=== PATIENT | male | born 1960 | race Caucasian/White ===

== ENCOUNTER 2024-12-07 00:19 | Inpatient (IN) | payer OTHER, MEDICARE ==
[~2024-12-07] VITALS: Ht 177.8 cm; Wt 82.9 kg
[2024-12-07] MEDS: HYDROcodone-ACET 10/325MG TAB PO ONE (00:30)
[2024-12-07 00:52] LABS: Basophils # (auto) 0.1 10 ^3/uL (0-0.2); Basophils % (auto) 0.4 % (0.0-2.0); Eosinophils # (auto) 0.2 10 ^3/uL (0-0.8); Eosinophils % (auto) 1.2 % (0.0-7.0); Hematocrit 47.9 % (41.0-53.0); Hemoglobin 16.2 g/dL (13.5-17.5); Lymphocytes # (auto) 1.2 10 ^3/uL (0.4-5.4); Lymphocytes % (auto) 8.3 % (10.0-50.0); Mean Corpuscular Hemoglobin 30.7 pg (28.0-32.0); Mean Corpuscular Hgb Conc. 33.8 g/dL (32.0-36.0); Mean Corpuscular Volume 90.8 fL (80.0-100.0); Monocytes # (auto) 0.9 10 ^3/uL (0-1.3); Monocytes % (auto) 6.6 % (0.0-12.0); Neutrophils % (auto) 83.5 % (37.0-80.0); Nucleated Red Blood Cells % 0.1 %; Platelet Count (auto) 286 10^3/uL (140-450); Red Blood Cells 5.28 10^6/uL (4.5-5.90); Red Cell Distribution Width 13.6 % (11.8-14.3); White Blood Cell 14.4 10^3/uL (4.4-10.8)
[2024-12-07 00:55] VITALS: PULSE 112; RESP 33; O2SAT 91
[2024-12-07 01:19] LABS: Alanine Aminotransferase 31 U/L (7-40); Alkaline Phosphatase 63 U/L (46-116); Anion Gap 13 (5-15); Aspartate Aminotransferase 37 U/L (13-40); BUN/Creatinine Ratio 8.1 (10.0-20.0); Bilirubin, Total 0.4 mg/dL (0.2-1.0); Blood Alcohol 140.1 mg/dL (<10); Blood Urea Nitrogen 13 mg/dL (9-23); Carbon Dioxide 23 mmol/L (20-31); Chloride 103 mmol/L (98-107); Potassium 3.9 mmol/L (3.5-5.1); Sodium 139 mmol/L (136-145); Total Protein 8.1 g/dL (5.7-8.2)
[2024-12-07 01:20] LABS: Albumin 5.1 g/dL (3.2-4.8); Calcium 10.5 mg/dL (8.7-10.4); Glucose 117 mg/dL (74-106)
--- NOTE | 2024-12-07 02:03 | DVH ---
Procedure: CT CHEST WITHOUT CONTRAST Reason for study/Clinical History: TRAUMA/L SIDE ANTERIOR CHEST PAIN Comparison Study: None Exam Date: 12/07/2024 01:23 AM TECHNIQUE: Multidetector CT of the chest was performed from the lung apices to the upper abdomen with out the use of intravenous contract. Axial, coronal and sagittal multiplanar reformats were performed . Radiation Dose Information: CT Dose: CTDI volume is mGy. Dose-length product is mGy*cm The dose indicators for CT are the volume Computed Tomography (CT) Dose Index (CTDIvol) and the Dose Length Product (DLP), and are measured in units of mGy and mGy-cm, respectively. These indicators are not patient dose, but values generated from the CT scanner acquisition factors. The report includes radiation exposure data for exposures received during this examination. FINDINGS: Motion degraded study. Lower neck: Unremarkable. Pleura: Moderate-sized left-sided pneumothorax. Lungs: Atelectasis/consolidation/contusions in bilateral lower lobes. Heart/Vascular Structures: Normal heart size. No pericardial effusion. Unremarkable thoracic aorta. Mediastinum / Lymph Nodes: Small hiatal hernia. Otherwise unremarkable. No lymphadenopathy. Musculoskeletal: Multiple left-sided rib fractures. Soft tissues: Unremarkable. Visualized Upper abdomen: Fatty liver. IMPRESSION: Moderate-sized left-sided pneumothorax. Atelectasis/consolidation/contusions in bilateral lower lobes . Multiple left-sided rib fractures. Radiation optimization: All CT scans at this facility use at least one of these dose optimization jostin hniques: automated exposure control mA and/or kV adjustment per patient size (includes targeted exam s where dose is matched to clinical indication) or iterative reconstruction.
--- NOTE | 2024-12-07 02:28 | ED.PDOC ---
SOB-HPI HPI Comments This patient is a 64-year-old male who was brought in by EMS for evaluation of left-sided chest pain concerns status post ground level follow up. Patient has a history of alcoholism and states that he tripped and fell landing on his left- sided chest. Patient states the pain is significant in his having difficulty moving air. Patient denies any fever nausea or vomiting. Patient was hypertensive and tachypneic at arrival. Patient's oxygen saturation was 91% on room air. Chief Complaint: Shortness of Breath Time Seen by MD: 00:23 Reviewed notes: Nurses Notes Information Source: Patient Mode of Arrival: EMS Severity: Moderate Timing: Hours Duration: Since onset Context: With Light Exertion PE Risk Factors: Trauma History of: None Prehospital treatment: None Modifying Factors: Nothing Associated Signs and Symptoms: None Quality: Sharp, Stabbing Location: Chest (L) Past Medical History PAST MEDICAL HISTORY: Denies Surgical History: Denies all surgeries Family History Family History: Reviewed,noncontributory to illness, No family hx of Cancer, No family hx of DM, No family hx of Heart bert, No family hx of HTN, No family hx ofKidney bert, No family hx of Liver bert, No family hx of Lung bert, No family hx of Stroke Social History Smoker: Non-Smoker Alcohol: Heavy Drugs: Denies Drug Use Lives In: Home Constitutional: denies: chills, diaphoresis, fatigue, fever, malaise, sweats, weakness, others EENTM: denies: blurred vision, double vision, ear bleeding, ear discharge, ear drainage, ear pain, ear ringing, eye pain, eye redness, hearing loss, mouth pain, mouth swelling, nasal discharge, nose bleeding, nose congestion, nose pain, photophobia, tearing, throat pain, throat swelling, voice changes, others Respiratory: denies: cough, hemoptysis, orthopnea, SOB at rest, shortness of breath, SOB with excertion, stridor, wheezing, others Cardiovascular: reports: chest pain (Musculoskeletal); denies: dizzy spells, diaphoresis, Dyspnea on exertion, edema, irregular heart beat, left arm pain, lightheadedness, palpitations, PND, syncope, others Gastrointestinal: denies: abdomen distended, abdominal pain, blood streaked bowels, constipated, diarrhea, dysphagia, difficulty swallowing, hematemesis, melena, nausea, poor appetite, poor fluid intake, rectal bleeding, rectal pain, vomiting, others Genitourinary: denies: burning, dysuria, flank pain, frequency, hematuria, incontinence, penile discharge, penile sore, pain, testicle pain, testicle swelling, urgency, others Neurological: denies: dizziness, fainting, headache, left sided numbness, left sided weakness, numbness, paresthesia, pre-existing deficit, right sided numbness, right sided weakness, seizure, speech problems, tingling, tremors, weakness, others Musculoskeletal: denies: back pain, gout, joint pain, joint swelling, muscle p ain, muscle stiffness, neck pain, others Integumetry: denies: bruises, change in color, change in hair/nails, dryness, laceration, lesions, lumps, rash, wounds, others Allergic/Immunocompromised: denies: Difficulty Healing, Frequent Infections, Hives, Itching, others Hematologic/Lymphatic: denies: anemia, blood clots, easy bleeding, easy bruising, swollen glands, others Endocrine: denies: excessive hunger, excessive sweating, excessive thirst, excessive urination, flushing, intolerance to cold, intolerance to heat, unexplained weight gain, unexplained weight loss, others Psychiatric: denies: anxiety, bipolar disorder, depression, hopeless, panic disorder, schizophrenia, sleepless, suicidal, others Physical Exam General Appearance: Moderate Distress (Moderate distress due to left-sided chest pain concerns.), Normal HEENT: Normal ENT Inspection, Pharynx Normal, TMs Normal Neck: Full Range of Motion, Non-Tender, Normal, Normal Inspection Respiratory: Other (Diminished left-sided breath sounds throughout lateral aspect and superior aspect. Exquisitely tender to palpation throughout the mid axillary region and ribs three through nine.) Cardiovascular: No Edema, No JVD, No Murmur, No Gallop, Normal Peripheral Pulses, Regular Rate/Rhythm Breast Exam: Deferred Gastrointestinal: No Organomegaly, Non Tender, No Pulsatile Mass, Normal Bowel Sounds, Soft Genitalia: Deferred Pelvic: Deferred Rectal: Deferred Extremities: NOT DONE Neurologic: Alert, No Motor Deficits, No Sensory Deficits Cerebellar Function: NOT DONE Reflexes: NOT DONE Skin: Dry, Normal Color, Warm Lymphatic: No Adenopathy Was a procedure done? Was a procedure done?: No Differential Dx Differential Diagnosis: Bronchitis, Cardiogenic Shock, COPD, Pneumonia, Pneumothorax, Pulmonary Embolism, Other (Rib fracture) X-Ray, Labs, Meds, VS Vital Signs Date Time Temp Pulse Resp B/P (MAP) Pulse Ox O2 Delivery O2 Flow Rate FiO2 12/07/24 00:27 98.1 93 24 159/91 (113) 91 98.1 12/07/24 00:26 100 Lab Test 12/07/24 01:40 12/07/24 00:38 Range/Units Troponin I High Sensitivity Pending < 3 L </=54 ng/L White Blood Count 14.4 H 4.4-10.8 10^3/uL Red Blood Count 5.28 4.5-5.90 10^6/uL Hemoglobin 16.2 13.5-17.5 g/dL Hematocrit 47.9 41.0-53.0 % Mean Corpuscular Volume 90.8 80.0-100.0 fL Mean Corpuscular Hemoglobin 30.7 28.0-32.0 pg Mean Corpuscular Hemoglobin Concent 33.8 32.0-36.0 g/dL Red Cell Distribution Width 13.6 11.8-14.3 % Platelet Count 286 140-450 10^3/uL Mean Platelet Volume 6.9 6.9-10.8 fL Neutrophils (%) (Auto) 83.5 H 37.0-80.0 % Lymphocytes (%) (Auto) 8.3 L 10.0-50.0 % Monocytes (%) (Auto) 6.6 0.0-12.0 % Eosinophils (%) (Auto) 1.2 0.0-7.0 % Basophils (%) (Auto) 0.4 0.0-2.0 % Neutrophils # (Auto) 12.0 H 1.6-8.6 10 ^3/uL Lymphocytes # (Auto) 1.2 0.4-5.4 10 ^3/uL Monocytes # (Auto) 0.9 0-1.3 10 ^3/uL Eosinophils # (Auto) 0.2 0-0.8 10 ^3/uL Basophils # (Auto) 0.1 0-0.2 10 ^3/uL Nucleated Red Blood Cells 0.1 % Sodium Level 139 136-145 mmol/L Potassium Level 3.9 3.5-5.1 mmol/L Chloride Level 103 98-107 mmol/L Carbon Dioxide Level 23 20-31 mmol/L Anion Gap 13 5-15 Blood Urea Nitrogen 13 9-23 mg/dL Creatinine 1.60 H 0.700-1.30 mg/dL Glomerular Filtration Rate Calc 47 >90 mL/min BUN/Creatinine Ratio 8.1 L 10.0-20.0 Serum Glucose 117 H 74-106 mg/dL Calcium Level 10.5 H 8.7-10.4 mg/dL Total Bilirubin 0.4 0.2-1.0 mg/dL Aspartate Amino Transferase (AST) 37 13-40 U/L Alanine Aminotransferase (ALT) 31 7-40 U/L Alkaline Phosphatase 63 46-116 U/L B-Type Natriuretic Peptide 5.88 0-100 pg/mL Total Protein 8.1 5.7-8.2 g/dL Albumin 5.1 H 3.2-4.8 g/dL Plasma/Serum Blood Alcohol 140.1 H <10 mg/dL Current Medications Medications (Trade) Dose Ordered Sig/Rbice Route Start Time Stop Time Status Last Admin Acetaminophen/ Hydrocodone Bitart ([place] 10/325MG Tab) 1 tab ONCE ONCE PO 12/07/24 00:30 12/07/24 00:31 DC 12/07/24 00:30 X-Ray, Labs, Meds, VS Comment All studies performed the ED were evaluated by me personally. Serum laboratories revealed a mild leukocytosis as well as an ETOH of 0.14. Troponins were negative. EKG revealed a sinus tachycardia with a rate of 100. Borderline prolonged RI interval as well as abnormal R-wave progression and possible her injury. RI interval of 208 and QT interval of 350. CT chest revealed a moderate-sized left-sided pneumothorax. Atelectasis consolidation and contusions and bilateral lower lobes as well as multiple left-sided rib fractures. Patient will be admitted for his pneumothorax and observed in the ED. hospitalist and residents can review and assess whether they want to tube with the patient. Patient has been put on oxygen for support. I discussed the patient's presentation and CT findings with Dr. Harris. He agreed with my decision to admit and allow hospitalist and residents to assess chest tube necessity. Time of 1ST Reevaluation: 02:27 Reevaluation 1ST: Improved Consultation: PCP Patient Education/Counseling: Diagnosis, Treatment Family Education/Counseling: Diagnosis, Treatment Departure 1 Departure Time of Disposition: 02:27 Impression: Primary Impression: Pneumothorax Additional Impressions: Rib fractures Leukocytosis Alcohol intoxication Disposition: 09 ADMITTED INPATIENT Condition: Fair Discharged With: Self Critical Care Note Critical Care Time?: No Stability Stability form required: No Heart Score Heart Score: Heart Score Response (Comments) Value History Slightly Suspicious 0 EKG Repolarization Disturb 1 Age >65 2 Risk Factors 1 or 2 risk factors 1 Troponin Normal limit 0 Total 4 TRAMAINE JAIMES PAC December 07, 2024 02:28
[2024-12-07] MEDS: HYDROmorphone HCL 2 MG/ML VL/or syr IV ONE ×3 (02:30→09:16)
[2024-12-07] MEDS: SODIUM CHLORIDE 0.9% 1,000 ML IV ONE (02:30)
[2024-12-07] MEDS: ONDANSETRON HCL 4 MG/2 ML VIAL IV ONE (05:45)
--- NOTE | 2024-12-07 06:43 | ECG ---
[facility] Test Date: 2024-12-07 Test Time: 00:26:03 Pat Name: MILENA JIMENES Department: ED Room: [address] [place] [address] Gender: M Surface [employer]: : 1960 Requested By: TRAMAINE JAIMES Order Number: [id number] Reading MD: Carlo Castro Measurements Intervals [place] Rate: 100 P: 54 NV: 208 QRS: 5 QRSD: 95 T: 62 QT: 350 QTc: 452 Interpretive Statements Sinus tachycardia Borderline prolonged NV interval Abnormal R-wave progression, early transition ST elevation, consider inferior injury Electronically Signed On 12-08-2024 12:13:16 PDT by Carlo Castro Please click the below link to view image of tracing.
[2024-12-07 07:51] VITALS: PULSE 107; RESP 40; O2SAT 91
[2024-12-07] MEDS ORDERED: ACETAMINOPHEN 325 MG TAB PO PRN (10:45)
--- NOTE | 2024-12-07 10:52 | DVHHP2 ---
History of Present Illness Reason for Visit: Shortness of breath History of Present Illness A 64-year-old male presents to the ED via EMS with left-sided chest pain and sob after a mechanical fall. The patient reports that while kicking a soccer ball with his knees, he accidentally fell and landed on left side, resulting in the onset of shortness of breath and chest pain. In the emergency department, a CT scan of chest revealed moderate left-sided pneumothorax, multiple left-sided rib fracture, atelectasis/consolidation/contusion in the bilateral lower lobes. Blo od work reveals alcohol intoxication, acute kidney injury, hypertension,and leukocytosis. Upon assessment, the patient is currently on 15 L non-rebreather mask and desaturates immediately upon removal of the mask. Past medical history of hypertension and hypothyroidism patient is unable to recall medication names or dosages Past Medical History As stated in HPI Past Surgical History Denies Family History Reviewed, non-contributory to the management of this case. Past Social History Ex-smoker Alcohol use Denies illicit drug use Review of Systems Constitutional: Yes: Malaise; No: Fever, Chills, Sweats, Weakness, Other Eyes: No: Pain, Vision change, Conjunctivae inflammation, Eyelid inflammation, Other, Redness ENT: No: Ear pain, Ear discharge, Nose pain, Nose discharge, Nose congestion, Mouth pain, Mouth swelling, Throat pain, Throat swelling, Other Respiratory: Shortness of breath; No: Cough, Dry, SOB with excertion, Wheezing, Hemoptysis, Pleuritic Pain, Sputum, Wheezing, Other Cardiovascular: Chest Pain; No: Palpitations, Orthopnea, Paroxysmal Noc. Dyspnea, Edema, Lt Headedness, Other Gastrointestinal: No: Nausea, Vomiting, Abdominal Pain, Diarrhea, Constipation, Melena, Hematochezia, Other Genitourinary: No Dysuria, No Frequency, No Incontinence, No Hematuria, No Retention, No Other Skin: No: Rash, Lesions, Jaundice, Bruising, Other Neurological: No: Weakness, Numbness, Incoordination, Change in speech, Confusion, Seizures, Other Allergies: Coded Allergies: NO KNOWN ALLERGIES (Unverified , 12/07/24) Medications Current Medications Medications Dose Ordered Sig/Brice Route Start Time Stop Time Status Last Admin Dose Admin Acetaminophen/ Hydrocodone Bitart 1 tab Q4HP PRN PO 12/07/24 10:45 Ondansetron HCl 4 mg Q4HP PRN IV 12/07/24 10:45 Enoxaparin Sodium 40 mg DAILY SC 12/08/24 10:00 UNV Acetaminophen 650 mg Q6HP PRN PO 12/07/24 10:45 Morphine Sulfate 2 mg Q4HPRN PRN IV 12/07/24 10:45 Folic Acid 1 mg/ Multivitamins 10 ml/Magnesium Sulfate 8 meq/ Thiamine HCl 100 mg/Dextrose 1,013.2 ml @ 125.001 mls/hr DAILY@1800 INJ 12/07/24 18:00 Exam Vital Signs Vital Signs Date Time Temp Pulse Resp B/P (MAP) Pulse Ox O2 Delivery O2 Flow Rate FiO2 12/07/24 10:15 106 36 169/85 12/07/24 07:51 91 Non-Rebreather 15 N/A 12/07/24 07:50 97.7 97.7 General Appearance: Alert, Oriented X3, moderate distress HEENT: Atraumatic, PERRLA, EOMI Respiratory: Other (Diminished lung sounds. 15 L non-rebreather mask) Cardiovascular: Regular rate, Normal S1, Normal S2 Abdominal: Normal bowel sounds, Soft, No tenderness Extremities: No clubbing, No cyanosis, No edema Skin: No rashes, No breakdown Neuro: Normal speech Psych/Mental Status: Mental status NL Labs/Xrays Labs Test 12/07/24 03:30 12/07/24 00:38 Range/Units Troponin I High Sensitivity < 3 L </=54 ng/L White Blood Count 14.4 H 4.4-10.8 10^3/uL Red Blood Count 5.28 4.5-5.90 10^6/uL Hemoglobin 16.2 13.5-17.5 g/dL Hematocrit 47.9 41.0-53.0 % Mean Corpuscular Volume 90.8 80.0-100.0 fL Mean Corpuscular Hemoglobin 30.7 28.0-32.0 pg Mean Corpuscular Hemoglobin Concent 33.8 32.0-36.0 g/dL Red Cell Distribution Width 13.6 11.8-14.3 % Platelet Count 286 140-450 10^3/uL Mean Platelet Volume 6.9 6.9-10.8 fL Neutrophils (%) (Auto) 83.5 H 37.0-80.0 % Lymphocytes (%) (Auto) 8.3 L 10.0-50.0 % Monocytes (%) (Auto) 6.6 0.0-12.0 % Eosinophils (%) (Auto) 1.2 0.0-7.0 % Basophils (%) (Auto) 0.4 0.0-2.0 % Neutrophils # (Auto) 12.0 H 1.6-8.6 10 ^3/uL Lymphocytes # (Auto) 1.2 0.4-5.4 10 ^3/uL Monocytes # (Auto) 0.9 0-1.3 10 ^3/uL Eosinophils # (Auto) 0.2 0-0.8 10 ^3/uL Basophils # (Auto) 0.1 0-0.2 10 ^3/uL Nucleated Red Blood Cells 0.1 % Sodium Level 139 136-145 mmol/L Potassium Level 3.9 3.5-5.1 mmol/L Chloride Level 103 98-107 mmol/L Carbon Dioxide Level 23 20-31 mmol/L Anion Gap 13 5-15 Blood Urea Nitrogen 13 9-23 mg/dL Creatinine 1.60 H 0.700-1.30 mg/dL Glomerular Filtration Rate Calc 47 >90 mL/min BUN/Creatinine Ratio 8.1 L 10.0-20.0 Serum Glucose 117 H 74-106 mg/dL Hemoglobin A1c 5.6 <5.7 % A1C Calcium Level 10.5 H 8.7-10.4 mg/dL Total Bilirubin 0.4 0.2-1.0 mg/dL Aspartate Amino Transferase (AST) 37 13-40 U/L Alanine Aminotransferase (ALT) 31 7-40 U/L Alkaline Phosphatase 63 46-116 U/L B-Type Natriuretic Peptide 5.88 0-100 pg/mL Total Protein 8.1 5.7-8.2 g/dL Albumin 5.1 H 3.2-4.8 g/dL Plasma/Serum Blood Alcohol 140.1 H <10 mg/dL PROCEDURE(s): CX2CT - CHEST WITHOUT CONTRAST REASON: TRAUMA/L SIDE ANTERIOR CHEST PAIN ORDER NUMBER(s): [id number], ACCESSION NUMBER(s): [id number] Procedure: CT CHEST WITHOUT CONTRAST Reason for study/Clinical History: TRAUMA/L SIDE ANTERIOR CHEST PAIN Comparison Study: None Exam Date: 12/07/2024 01:23 AM TECHNIQUE: Multidetector CT of the chest was performed from the lung apices to the upper abdomen without the use of intravenous contract. Axial, coronal and sagittal multiplanar reformats were performed. Radiation Dose Information: CT Dose: CTDI volume is mGy. Dose-length product is mGy*cm The dose indicators for CT are the volume Computed Tomography (CT) Dose Index (CTDIvol) and the Dose Length Product (DLP), and are measured in units of mGy and mGy-cm, respectively. These indicators are not patient dose, but values generated from the CT scanner acquisition factors. The report includes radiation exposure data for exposures received during this examination. FINDINGS: Motion degraded study. Lower neck: Unremarkable. Pleura: Moderate-sized left-sided pneumothorax. Lungs: Atelectasis/consolidation/contusions in bilateral lower lobes. Heart/Vascular Structures: Normal heart size. No pericardial effusion. Unremarkable thoracic aorta. Mediastinum / Lymph Nodes: Small hiatal hernia. Otherwise unremarkable. No lymphadenopathy. Musculoskeletal: Multiple left-sided rib fractures. Soft tissues: Unremarkable. Visualized Upper abdomen: Fatty liver. IMPRESSION: Moderate-sized left-sided pneumothorax. Atelectasis/consolidation/contusions in bilateral lower lobes. Multiple left-sided rib fractures. Assessment/Plan Assessment/Plan # left-sided pneumothorax, moderate # acute respiratory failure with hypoxemia likely due to above # s/p mechanical fall resulting in # multiple left-sided rib fractures Admit to telemetry Repeat chest x-ray to evaluate for chest tube placement given patient is on 15 L of non-rebreather with respiratory distress and hypoxemia upon removal of non- rebreather mask Continue with O2 supplement Close respiratory surveillance # leukocytosis, suspected pneumonia Empiric antibiotics Blood and sputum culture # hypertension Amlodipine Hydralazine Monitor # alcohol intoxication Banana bag Monitor CIWA per protocol Check UDS # LUIS on CKD 3A IV fluid Monitor kidney function DVT prophylaxis Medical plan discussed with patient and RN Plan discussed with: Patient, Other (RN) My Orders Orders - KELLEN DUQUE [employer] Procedure Category Date Status Time Chest Portable XY 12/07/24 Logged 10:14 Urinalysis LAB 12/07/24 Logged 10:14 Drug Screen LAB 12/07/24 Logged 10:14 Admit ADMIT 12/07/24 Transmitted 10:41 Code Status CODE 12/07/24 Transmitted 10:41 Hydrocodone-Acet PHA 12/07/24 In Process 5/325mg Tab ([place] 10:45 Ondansetron Hcl PHA 12/07/24 In Process (Zofran) 10:45 Enoxaparin Sodium PHA 12/08/24 Logged (Lovenox) 10:00 Fall Risk Precautions MERYL 12/07/[address] 10:41 Complete Blood Count LAB 12/08/24 Verified 04:00 Comprehensive LAB 12/08/24 Verified Metabolic Panel 04:00 Cardiac DIET 12/07/24 Transmitted Diet-2gna,Lofat,Lochol Lunch Condition: Fair MERYL 12/07/24 In Process 10:41 Acetaminophen Tablet PHA 12/07/24 In Process (Tylenol Tablet) 10:45 Morphine Sulfate PHA 12/07/24 In Process Injection 10:45 Folic Acid... PHA 12/07/24 In Process 18:00 Date of Service: December 07, 2024 Billing Provider: KELLEN DUQUE Common Visit Codes: [id number] INP/OBS CARE (HIGH) KELLEN DUQUE December 07, 2024 10:52
[2024-12-07] MEDS: ENOXAPARIN SOD 40 MG/0.4 ML SYRINGE SC SCH (11:04)
[2024-12-07] MEDS: amLODIPine BESYLATE 5 MG TAB PO ONE (11:24)
[2024-12-07] MEDS: cefTRIAXone 1GM/50ML D5W 50 ML IV ONE (11:24)
--- NOTE | 2024-12-07 11:24 | DVH ---
XY CHEST PORTABLE, HISTORY: sob COMPARISON: None None TECHNICAL DATA: 1 view of the chest was obtained. FINDINGS: Lines and tubes: None Cardiomediastinal silhouette: normal Pulmonary vasculature: normal Lung expansion: normal Lung airspace: Patchy opacities. Lung interstitium: normal Pleura: normal Pneumothorax: yes Bones: Unremarkable Other: no IMPRESSION: There is a small to moderate left-sided pneumothorax. This appears similar to the prior CT.
[2024-12-07] MEDS: hydrALAZINE HCL 20 MG/ML VL IV PRN (11:38)
[2024-12-07] MEDS: ONDANSETRON HCL 4 MG/2 ML VIAL IV PRN (12:03)
[2024-12-07] MEDS: MORPHINE SULFATE INJ 2 MG/ml SYRG IV PRN (12:03)
[2024-12-07] MEDS: AZITHROMYCIN 500MG/ 250ML 250 ML IV ONE (12:03)
[2024-12-07 12:18] LABS: Urine Bacteria None Seen /hpf (None Seen)
[2024-12-07 12:36] LABS: Urine Blood Negative /uL (Negative); Urine Clarity Clear (Clear); Urine Color Light-Yellow (Yellow); Urine Protein, UAD TRACE (Negative); Urine Specific Gravity 1.024 (1.001-1.035); Urine Squamous Epithelial Cell None Seen /hpf (<5); Urine Urobilinogen Normal (Negative); Urine WBC < 1 /HPF (0-3)
[2024-12-07 12:40] LABS: Opiate Scree,Urine Pos (NEGATIVE)
[2024-12-07 12:41] LABS: Cannabinoid Screen, Urine Neg (NEGATIVE)
[2024-12-07 12:47] LABS: Amphetamine Screen, Urine Neg (NEGATIVE); Barbiturate Scree,Urine Neg (NEGATIVE); Benzodiazephine Screen, Urine Neg (NEGATIVE); Cocaine Screen, Urine Neg (NEGATIVE); Phencyclidine Screen, Urine Neg (NEGATIVE)
[2024-12-07] MEDS: HYDROcodone-ACET 5/325MG TAB PO PRN (15:25)
--- NOTE | 2024-12-07 15:44 | DVH ---
CHEST RADIOGRAPH Indication: follow-up on pneumothorax Technique: Single frontal view of the chest was obtained Comparison: XY CHEST PORTABLE on DOS: 12/07/24 CT chest without contrast 12/07/2024 FINDINGS: Lines and Tubes: None Lungs: No focal consolidation. Redemonstration of small to moderate left-sided pneumothorax right cos tophrenic angle linear atelectasis. Pleura: No effusion. Cardiomediastinal contours: Unremarkable Bones: The left-sided acute rib fractures are better evaluated on CT. IMPRESSION: Redemonstration of Small to moderate left-sided pneumothorax ; unchanged to slightly worsened from pr ior imaging. No Chest tube is visualized.
[2024-12-07] MEDS: FOLIC ACID 1 MG, MULTIPLE VITAMIN 10 ML, MAGNESIUM SULF SDV 50% 8 MEQ, THIAMINE INJ 100... INJ SCH (18:03)
[2024-12-07 19:30] VITALS: PULSE 108; RESP 20; O2SAT 93
[2024-12-08] VITALS (16 sets, daily range): BP systolic 128–223; BP diastolic 74–127; PULSE 95–137; RESP 9–54; TEMP 97.7–98.4; O2SAT 83–100
[2024-12-08] MEDS: MORPHINE SULFATE 4 MG/ML SYR/VIAL IV ONE (03:52)
[2024-12-08] MEDS: ONDANSETRON HCL 4 MG/2 ML VIAL IV ONE ×2 (03:52→10:06)
[2024-12-08 05:19] LABS: Basophils # (auto) 0 10 ^3/uL (0-0.2); Basophils % (auto) 0.3 % (0.0-2.0); Eosinophils # (auto) 0.1 10 ^3/uL (0-0.8); Eosinophils % (auto) 0.4 % (0.0-7.0); Hematocrit 44.3 % (41.0-53.0); Lymphocytes # (auto) 0.8 10 ^3/uL (0.4-5.4); Lymphocytes % (auto) 5.8 % (10.0-50.0); Mean Corpuscular Hemoglobin 30.7 pg (28.0-32.0); Mean Corpuscular Hgb Conc. 33.7 g/dL (32.0-36.0); Monocytes # (auto) 1.3 10 ^3/uL (0-1.3); Monocytes % (auto) 9.1 % (0.0-12.0); Neutrophils # (auto) 12.1 10 ^3/uL (1.6-8.6); Neutrophils % (auto) 84.4 % (37.0-80.0); Nucleated Red Blood Cells % 0.1 %; Platelet Count (auto) 278 10^3/uL (140-450); Red Blood Cells 4.87 10^6/uL (4.5-5.90); Red Cell Distribution Width 13.6 % (11.8-14.3); White Blood Cell 14.4 10^3/uL (4.4-10.8)
[2024-12-08 05:34] LABS: Alanine Aminotransferase 25 U/L (7-40); Albumin 4.6 g/dL (3.2-4.8); Alkaline Phosphatase 62 U/L (46-116); Anion Gap 8 (5-15); Aspartate Aminotransferase 37 U/L (13-40); BUN/Creatinine Ratio 11.3 (10.0-20.0); Calcium 9.3 mg/dL (8.7-10.4); Carbon Dioxide 27 mmol/L (20-31); Chloride 101 mmol/L (98-107); Potassium 3.8 mmol/L (3.5-5.1); Sodium 136 mmol/L (136-145); Total Protein 7.4 g/dL (5.7-8.2)
[2024-12-08 05:37] LABS: Blood Urea Nitrogen 9 mg/dL (9-23); Glucose 152 mg/dL (74-106)
[2024-12-08 05:48] LABS: Bilirubin, Total 0.8 mg/dL (0.2-1.0)
--- NOTE | 2024-12-08 05:48 | DVH ---
EXAM: XY CHEST XRAY 1 VIEW Indication: CHEST TUBE PLACEMENT Technique: Single frontal view of the chest was obtained Comparison: XY CHEST PORTABLE on DOS: 12/07/24, XY CHEST PORTABLE on DOS: 12/07/24 FINDINGS: Lines and Tubes: Left pigtail catheter is visualized in the left soft tissues and not within the ches t. Lungs: Small left pneumothorax and left basilar opacity. Cardiomediastinal contours: Unremarkable Bones: No acute osseous abnormality. IMPRESSION: Left pigtail catheter is malpositioned and visualized in the soft tissues of the chest wall. Small le ft pneumothorax is visualized.
[2024-12-08] MEDS: HYDROmorphone HCL 2 MG/ML VL/or syr IV ONE (07:45)
--- NOTE | 2024-12-08 08:19 | DVH ---
CHEST RADIOGRAPH Indication: Chest tube placement Technique: Single frontal view of the chest was obtained Comparison: XY CHEST XRAY 1 VIEW on DOS: 12/08/24 FINDINGS: Lines and Tubes: Left apically oriented chest tube. Lungs: Patchy left lung consolidation. Pleura: No effusion. No pneumothorax. Cardiomediastinal contours: Cardiomegaly. Bones: No acute osseous abnormality. Subcutaneous emphysema in the left chest wall. IMPRESSION: 1. Patchy left lung consolidation. 2. Left apically oriented chest tube. No discernible pneumothorax.
[2024-12-08] MEDS: cefTRIAXone 1GM/50ML D5W 50 ML IV SCH (08:58)
[2024-12-08 10:04] LABS: Base Excess 0.2 mmol/L (-2.0-3.0)
[2024-12-08] MEDS: MORPHINE SULFATE INJ 2 MG/ml SYRG IV ONE (10:05)
[2024-12-08] MEDS: amLODIPine BESYLATE 5 MG TAB PO SCH (10:05)
[2024-12-08] MEDS: AZITHROMYCIN 500MG/ 250ML 250 ML IV SCH (10:16)
[2024-12-08] MEDS: LORazepam 2MG/ML-1ML VIAL IV ONE ×3 (10:53→15:57)
[2024-12-08] MEDS: MAGNESIUM OXIDE 400 MG TAB PO ONE (11:41)
[2024-12-08] MEDS: THIAMINE HCL 100 MG TAB PO ONE (11:41)
[2024-12-08] MEDS: MULTIPLE VITAMIN TAB PO ONE (11:41)
[2024-12-08] MEDS: FOLIC ACID 1 MG TAB PO ONE (11:41)
[2024-12-08] MEDS: LORazepam 2MG/ML-1ML VIAL IV PRN (12:44)
[2024-12-08 13:53] LABS: Base Excess 1.4 mmol/L (-2.0-3.0)
[2024-12-08] MEDS: LORazepam 2MG/ML-1ML VIAL ONE ×2 (15:52→15:53)
--- NOTE | 2024-12-08 20:39 | DVHPN2 ---
Subjective In bed resting, does not keep he's oxygen on Changes from previous H/P or p: No Changes Eyes: No Pain, No Vision change, No Conjunctivae inflammation, No Eyelid inflammation, No Other, No Redness ENT: No Ear pain, No Ear discharge, No Nose pain, No Nose discharge, No Nose congestion, No Mouth pain, No Mouth swelling, No Throat pain, No Throat swelling, No Other Cardiovascular: Chest Pain; No Palpitations, No Orthopnea, No Paroxysmal Noc. Dyspnea, No Edema, No Lt Headedness, No Other Respiratory: No Cough, No Dry; Shortness of breath; No SOB with excertion, No Wheezing, No Hemoptysis, No Pleuritic Pain, No Sputum, No Other Gastrointestinal: No Nausea, No Vomiting, No Abdominal Pain, No Diarrhea, No Constipation, No Melena, No Hematochezia, No Other Genitourinary: No Dysuria, No Frequency, No Incontinence, No Hematuria, No Retention, No Other Skin: No Rash, No Lesions, No Jaundice, No Bruising, No Other Objective Vitals Vital Signs Date Time Temp Pulse Resp B/P (MAP) Pulse Ox O2 Delivery O2 Flow Rate FiO2 12/08/24 20:06 152/92 12/08/24 18:30 98 19 99 12/08/24 17:00 97.7 97.7 12/08/24 13:59 50.0 100 12/08/24 09:35 Non-Rebreather Intake/Output Intake and Output 12/08/24 07:00 Intake Total 1175 ml Balance 1175 ml Intake IV Total 1175 ml General Appearance: mild distress Lungs: Clear to auscultation Cardiovascular: Regular rate, Normal S1, Normal S2 Abdomen: Normal bowel sounds Medications Current Medications Medications Dose Ordered Sig/Brice Route Start Time Stop Time Status Last Admin Dose Admin Acetaminophen/ Hydrocodone Bitart 1 tab Q4HP PRN PO 12/07/24 10:45 12/08/24 00:17 1 TAB Ondansetron HCl 4 mg Q4HP PRN IV 12/07/24 10:45 12/07/24 16:07 4 MG Enoxaparin Sodium 40 mg DAILY SC 12/07/24 10:52 12/08/24 10:04 40 MG Acetaminophen 650 mg Q6HP PRN PO 12/07/24 10:45 Morphine Sulfate 2 mg Q4HPRN PRN IV 12/07/24 10:45 12/08/24 15:55 2 MG Ceftriaxone Sodium 50 ml @ 100 mls/hr DAILY@09 IV 12/08/24 09:00 12/08/24 08:58 100 MLS/HR Azithromycin 250 ml @ 125 mls/hr DAILY IV 12/08/24 10:00 12/08/24 10:16 125 MLS/HR Hydralazine HCl 10 mg Q6HP PRN IV 12/07/24 11:15 12/08/24 20:06 10 MG Amlodipine Besylate 10 mg DAILY PO 12/08/24 10:00 12/08/24 10:05 10 MG Folic Acid 1 mg DAILY PO 12/09/24 10:00 Multivitamins 1 tab DAILY PO 12/09/24 10:00 Magnesium Oxide 400 mg DAILY PO 12/09/24 10:00 Thiamine HCl 100 mg DAILY PO 12/09/24 10:00 Lorazepam 1 mg Q4HPRN PRN IV 12/08/24 12:15 12/08/24 20:05 1 MG Laboratory Results Laboratory Tests 12/08/24 04:50 Chemistry Test 12/08/24 04:50 Albumin 4.6 g/dL (3.2-4.8) Calcium Level 9.3 mg/dL (8.7-10.4) Total Protein 7.4 g/dL (5.7-8.2) LFT Test 12/08/24 04:50 Alanine Aminotransferase (ALT) 25 U/L (7-40) Alkaline Phosphatase 62 U/L (46-116) Aspartate Amino Transferase (AST) 37 U/L (13-40) Total Bilirubin 0.8 mg/dL (0.2-1.0) Urinalysis Test 12/07/24 12:13 Urine Color Light-yellow (Yellow) Urine Clarity Clear (Clear) Urine pH 5.0 (5.0-9.0) Urine Specific [place] 1.024 (1.001-1.035) Urine Protein Trace (Negative) H Urine Ketones 2+ (Negative) H Urine Blood Negative /uL (Negative) Urine Nitrite Negative (Negative) Urine Bilirubin Negative (Negative) Urine Urobilinogen Normal mg/dL (Negative) Urine Leukocyte Esterase Negative /uL (Negative) Urine RBC 1 /hpf (0 - 3) Urine Microscopic WBC < 1 /HPF (0-3) Urine Squamous Epithelial Cells None seen /hpf (<5) Urine Bacteria None seen /hpf (None Seen) Urine Glucose 2+ mg/dL (Normal) H Blood Gas Results Test 12/08/24 09:58 12/08/24 13:46 Arterial Blood pH 7.301 (7.350-7.450) 7.360 (7.350-7.450) FiO2 % 100.0 100.0 Microbiology Microbiology Date/Time Source Procedure Growth Status 12/07/24 11:30 Blood Blood Culture - Preliminary NO GROWTH AFTER 24 HOURS OF INCUBATION. Resulted Assessment/Plan Assessment/Plan # left-sided pneumothorax, moderate # acute respiratory failure with hypoxemia likely due to above # s/p mechanical fall resulting in # multiple left-sided rib fractures Admit to telemetry s/p chest tube consult pulmonary continue oxygen repeat CXR if symtoms worsen # leukocytosis, suspected pneumonia Empiric antibiotics Blood and sputum culture # hypertension Amlodipine Hydralazine Monitor # alcohol intoxication Banana bag Monitor CIWA per protocol Check UDS # LUIS on CKD 3A IV fluid Monitor kidney function Plan discussed with: Patient My Orders Orders - IKARA SHERMAN MD Procedure Category Date Status Time Transfer Orders XFER 12/08/24 Transmitted 12:03 Lorazepam 2mg/Ml Inj PHA 12/08/24 In Process (Ativan Inj) 12:15 *Consult CONS 12/08/24 Transmitted / 13:17 Date of Service: December 08, 2024 Billing Provider: KIARA SHERMAN MD Common Visit Codes: [id number] INP/OBS CARE(HIGH) KIARA SHERMAN MD December 08, 2024 20:39
[2024-12-08] MEDS: ETOMIDATE (2MG/ML) 20ML VIAL IV ONE ×2 (22:47→23:48)
[2024-12-08] MEDS: ROCURONIUM 10MG/ML 10ML VIAL IV ONE (22:47)
[2024-12-08] MEDS: PROPOFOL 100 ML IV ONE (22:51)
[2024-12-08] MEDS: fentaNYL Drip 2500mCg/250mlNS 250 ML IV ONE (22:52)
[2024-12-09] VITALS (102 sets, daily range): BP systolic 60–139; BP diastolic 49–77; PULSE 64–107; RESP 13–21; TEMP 97.5–99.7; O2SAT 93–100
[2024-12-09] MEDS: fentaNYL Drip 2500mCg/250mlNS 250 ML IV SCH (00:17)
[2024-12-09] MEDS: ROCURONIUM 10MG/ML 10ML VIAL IV ONE (00:18)
[2024-12-09] MEDS: PROPOFOL 100 ML IV SCH (00:22)
[2024-12-09 00:40] LABS: Base Excess 1.9 mmol/L (-2.0-3.0)
--- NOTE | 2024-12-09 01:31 | DVH ---
CHEST RADIOGRAPH Indication: ETT Technique: Single frontal view of the chest was obtained COMPARISON: XY CHEST XRAY 1 VIEW on DOS: 12/08/24 FINDINGS / IMPRESSION: Lines and Tubes: Interval insertion of ETT in satisfactory position with its tip approximately 3.6 c m above the allen. Left-sided chest tube remains in place. Lungs: Infiltrates again noted throughout the left lung and at the right lung base, not significantly change compared to the prior chest x-ray from a day earlier. Pleura: No significant pleural effusion. No significant pneumothorax evident. Cardiomediastinal contours: Unremarkable. Bones: Left-sided rib fractures.
--- NOTE | 2024-12-09 01:33 | ED.PDOC ---
Was a procedure done? Was a procedure done?: Yes Sedation Sedation?: No Central Line Recorder of insertion practice: Calender Runner Occupation of core inserter: Attending Physician Indication: Hypotension, Volume resuscitation Room prepared for procedure: Yes Calender Runner performed hand hygien: Yes Maximal sterile barrier precau: Mask/Eye shield, Sterlie gloves, Large sterlie drape Skin Preparation: Chlorhexidine gluconate Skin preparation completely dr: Yes Insertion site: Right, Femoral Central line catheter type: [id number] dialysis Number of lumens: 3 Central line exchanged over a: Yes Antiseptic ointment applied to: Yes Post Assessment: Proper placement Informed consent obtained: No Risks/benefits/alt described: No Intubation Indication: Respiratory Insufficiency, Altered Mental Status, Airway Protection Prep: Preoxygenation Pretreated with: Other (Etomidate) Medicated with: Other (Rocuronium) Intubation Approach: Orotracheal Intubation size: cm (8) Informed consent obtained: No Risks/benefits/alt described: No Notes Patient was desatting, with increasing work of breathing, and patient is only on protecting his airway. Patient was emergently intubated ADELSO LARRY MD December 09, 2024 01:33
[2024-12-09 06:55] LABS: Basophils # (auto) 0 10 ^3/uL (0-0.2); Basophils % (auto) 0.1 % (0.0-2.0); Eosinophils # (auto) 0.1 10 ^3/uL (0-0.8); Eosinophils % (auto) 0.9 % (0.0-7.0); Hematocrit 38.4 % (41.0-53.0); Hemoglobin 13.3 g/dL (13.5-17.5); Lymphocytes # (auto) 1.2 10 ^3/uL (0.4-5.4); Lymphocytes % (auto) 12.9 % (10.0-50.0); Mean Corpuscular Hemoglobin 31.1 pg (28.0-32.0); Mean Corpuscular Hgb Conc. 34.7 g/dL (32.0-36.0); Mean Corpuscular Volume 89.6 fL (80.0-100.0); Monocytes # (auto) 1.2 10 ^3/uL (0-1.3); Monocytes % (auto) 12.6 % (0.0-12.0); Neutrophils # (auto) 7.1 10 ^3/uL (1.6-8.6); Neutrophils % (auto) 73.5 % (37.0-80.0); Platelet Count (auto) 233 10^3/uL (140-450); Red Blood Cells 4.29 10^6/uL (4.5-5.90); Red Cell Distribution Width 13.2 % (11.8-14.3); White Blood Cell 9.7 10^3/uL (4.4-10.8)
[2024-12-09 07:01] LABS: Anion Gap 9 (5-15); Carbon Dioxide 30 mmol/L (20-31); Chloride 99 mmol/L (98-107); Potassium 3.8 mmol/L (3.5-5.1); Sodium 138 mmol/L (136-145)
[2024-12-09 07:07] LABS: BUN/Creatinine Ratio 17.4 (10.0-20.0); Blood Urea Nitrogen 16 mg/dL (9-23); Calcium 9.6 mg/dL (8.7-10.4); Glucose 103 mg/dL (74-106)
[2024-12-09] MEDS: FOLIC ACID 1 MG TAB PO SCH (10:33)
[2024-12-09] MEDS: THIAMINE HCL 100 MG TAB PO SCH (10:33)
[2024-12-09] MEDS: MULTIPLE VITAMIN TAB PO SCH (10:34)
[2024-12-09] MEDS: MAGNESIUM OXIDE 400 MG TAB PO SCH (10:36)
--- NOTE | 2024-12-09 15:44 | DVHPN2 ---
Subjective Patient intubated and sedated Reviewed: Care Plan, H&P, Labs, Medications Changes from previous H/P or p: No Changes General: Per HPI Eyes: No Pain, No Vision change, No Conjunctivae inflammation, No Eyelid inflammation, No Other, No Redness ENT: No Ear pain, No Ear discharge, No Nose pain, No Nose discharge, No Nose congestion, No Mouth pain, No Mouth swelling, No Throat pain, No Throat swelling, No Other Cardiovascular: Chest Pain; No Palpitations, No Orthopnea, No Paroxysmal Noc. Dyspnea, No Edema, No Lt Headedness, No Other Respiratory: No Cough, No Dry; Shortness of breath; No SOB with excertion, No Wheezing, No Hemoptysis, No Pleuritic Pain, No Sputum, No Other Gastrointestinal: No Nausea, No Vomiting, No Abdominal Pain, No Diarrhea, No Constipation, No Melena, No Hematochezia, No Other Genitourinary: No Dysuria, No Frequency, No Incontinence, No Hematuria, No Retention, No Other Skin: No Rash, No Lesions, No Jaundice, No Bruising, No Other Objective Vitals Vital Signs Date Time Temp Pulse Resp B/P (MAP) Pulse Ox O2 Delivery O2 Flow Rate FiO2 12/09/24 14:00 78 12/09/24 14:00 20 12/09/24 13:59 98 40 12/09/24 10:15 98.3 98.3 12/09/24 08:00 Mechanical Ventilator+ 12/08/24 22:00 50.0 Intake/Output Intake and Output 12/09/24 07:00 Intake Total 485.541 ml Output Total 1100 ml Balance -614.459 ml Intake IV Total 485.541 ml Output Urine Total 1100 ml General Appearance: moderate distress, Other (Intubated and sedated) Lungs: Clear to auscultation, Other (Mechanical ventilation, FiO2 40%) Chest/Breasts: Other (Chest tube to 20 cm of suction. Positive tiling. No air leak appreciated.) Cardiovascular: Regular rate, Normal S1, Normal S2 Abdomen: Normal bowel sounds Musculoskeletal: Normal sensory function, Normal motor function Neuro: Normal gait Skin: Dry, Intact Psych/Mental Status: Mental status NL, Mood NL Medications Current Medications Medications Dose Ordered Sig/Brice Route Start Time Stop Time Status Last Admin Dose Admin Acetaminophen/ Hydrocodone Bitart 1 tab Q4HP PRN PO 12/07/24 10:45 12/08/24 00:17 1 TAB Ondansetron HCl 4 mg Q4HP PRN IV 12/07/24 10:45 12/07/24 16:07 4 MG Enoxaparin Sodium 40 mg DAILY SC 12/07/24 10:52 12/09/24 10:37 40 MG Acetaminophen 650 mg Q6HP PRN PO 12/07/24 10:45 Morphine Sulfate 2 mg Q4HPRN PRN IV 12/07/24 10:45 12/08/24 15:55 2 MG Ceftriaxone Sodium 50 ml @ 100 mls/hr DAILY@09 IV 12/08/24 09:00 12/09/24 10:27 100 MLS/HR Azithromycin 250 ml @ 125 mls/hr DAILY IV 12/08/24 10:00 12/09/24 10:33 125 MLS/HR Hydralazine HCl 10 mg Q6HP PRN IV 12/07/24 11:15 12/08/24 20:06 10 MG Amlodipine Besylate 10 mg DAILY PO 12/08/24 10:00 12/08/24 10:05 10 MG Folic Acid 1 mg DAILY PO 12/09/24 10:00 12/09/24 10:33 1 MG Multivitamins 1 tab DAILY PO 12/09/24 10:00 12/09/24 10:34 1 TAB Magnesium Oxide 400 mg DAILY PO 12/09/24 10:00 12/09/24 10:36 400 MG Thiamine HCl 100 mg DAILY PO 12/09/24 10:00 12/09/24 10:33 100 MG Lorazepam 1 mg Q4HPRN PRN IV 12/08/24 12:15 12/08/24 20:05 1 MG Propofol 100 ml @ 2.454 mls/ hr Q24H IV 12/08/24 23:00 12/09/24 13:53 12.27 MLS/HR Fentanyl Citrate 250 ml @ 2.5 mls/hr Q24H IV 12/08/24 23:00 12/09/24 10:38 17.5 MLS/HR Norepinephrine Bitartrate 250 ml @ 3.75 mls/hr Q24H IV 12/09/24 15:15 UNV Laboratory Results Laboratory Tests 12/09/24 05:55 Chemistry Test 12/09/24 05:55 Calcium Level 9.6 mg/dL (8.7-10.4) Urinalysis Test 12/07/24 12:13 Urine Color Light-yellow (Yellow) Urine Clarity Clear (Clear) Urine pH 5.0 (5.0-9.0) Urine Specific [place] 1.024 (1.001-1.035) Urine Protein Trace (Negative) H Urine Ketones 2+ (Negative) H Urine Blood Negative /uL (Negative) Urine Nitrite Negative (Negative) Urine Bilirubin Negative (Negative) Urine Urobilinogen Normal mg/dL (Negative) Urine Leukocyte Esterase Negative /uL (Negative) Urine RBC 1 /hpf (0 - 3) Urine Microscopic WBC < 1 /HPF (0-3) Urine Squamous Epithelial Cells None seen /hpf (<5) Urine Bacteria None seen /hpf (None Seen) Urine Glucose 2+ mg/dL (Normal) H Blood Gas Results Test 12/09/24 00:30 Arterial Blood pH 7.397 (7.350-7.450) FiO2 % 100.0 Microbiology Microbiology Date/Time Source Procedure Growth Status 12/09/24 05:00 Nose MRSA Screen - Final Complete 12/07/24 11:30 Blood Blood Culture - Preliminary NO GROWTH AFTER 48 HOURS OF INCUBATION. Resulted Labs and/or images reviewed: Labs reviewed by me, Image(s) reviewed by me Assessment/Plan Assessment/Plan Impression: -acute hypoxic respiratory failure secondary to pneumothorax -multiple rib fractures with left pneumothorax -alcoholism -hypotension, secondary to sedation -sirs Plan: -continue current sedation and mechanical ventilation settings -repeat chest x-ray in a.m. -continue current sedation, transitioned to Precedex in a.m. for spontaneous breathing trial -PUD, DVT prophylaxis -chest x-ray 2- 20 cm of suction -continue current antibiotic therapy -continue MVI, thiamine -repeat labs in a.m. -vasopressor therapy to keep map greater than 65 mmHg Critical care time spent with patient discussing and formulating plan of care: 40 minutes. This does not include time spent performing procedures. This medical document was created using an electronic medical record system with [employer] system. Although this document has been carefully reviewed, there may still be some phonetic and typographical errors. These areas are purely typographical due to imperfections of the software programs, and do not reflect any compromise in the patient's medical care. Plan discussed with: Patient, Other (RN) My Orders Orders - GEORGE COULTER NP Procedure Category Date Status Time Norepinephrine 8 PHA 12/09/24 Logged Mg/250ml Kit 15:15 Cpap/Sed Vacation Med ORDERS 12/09/24 Verified Weaning 15:38 Cpap Trial For Am ORDERS 12/09/24 Verified 15:38 Precedex Drip Rass -2 PHA 12/09/24 Verified 15:45 Chest Portable XY 12/10/24 Verified 04:00 Date of Service: December 09, 2024 Billing Provider: GEORGE COULTER NP Common Visit Codes: [id number] CARE 30-74 MIN GEORGE COULTER NP December 09, 2024 15:44
[2024-12-09] MEDS: DEXMEDETOMIDINE HCL IN D5W 100 ML IV SCH (18:51)
[2024-12-09] MEDS: NOREPINEPHRINE 8 MG/250ML KIT 250 ML IV SCH (18:51)
[2024-12-10] VITALS (68 sets, daily range): BP systolic 98–194; BP diastolic 63–105; PULSE 64–122; RESP 13–35; TEMP 97.4–98.4; O2SAT 89–100
[2024-12-10 04:09] LABS: Basophils # (auto) 0.1 10 ^3/uL (0-0.2); Basophils % (auto) 0.7 % (0.0-2.0); Eosinophils # (auto) 0.3 10 ^3/uL (0-0.8); Hematocrit 42.5 % (41.0-53.0); Hemoglobin 14.4 g/dL (13.5-17.5); Lymphocytes # (auto) 1.8 10 ^3/uL (0.4-5.4); Mean Corpuscular Hemoglobin 31.1 pg (28.0-32.0); Mean Corpuscular Volume 91.4 fL (80.0-100.0); Monocytes # (auto) 1.4 10 ^3/uL (0-1.3); Monocytes % (auto) 13.8 % (0.0-12.0); Neutrophils # (auto) 6.5 10 ^3/uL (1.6-8.6); Neutrophils % (auto) 64.5 % (37.0-80.0); Platelet Count (auto) 287 10^3/uL (140-450); Red Blood Cells 4.65 10^6/uL (4.5-5.90); Red Cell Distribution Width 13.4 % (11.8-14.3)
[2024-12-10 04:16] LABS: Chloride 100 mmol/L (98-107); Potassium 3.8 mmol/L (3.5-5.1); Sodium 139 mmol/L (136-145)
[2024-12-10 04:17] LABS: Anion Gap 7 (5-15); Calcium 8.9 mg/dL (8.7-10.4)
[2024-12-10 04:22] LABS: BUN/Creatinine Ratio 12.1 (10.0-20.0); Blood Urea Nitrogen 12 mg/dL (9-23)
[2024-12-10 04:30] LABS: Carbon Dioxide 32 mmol/L (20-31)
[2024-12-10 04:53] LABS: Glucose 107 mg/dL (74-106)
--- NOTE | 2024-12-10 05:08 | DVH ---
CHEST RADIOGRAPH Indication: pneumothorax Technique: Single frontal view of the chest was obtained Comparison: XY CHEST XRAY 1 VIEW on DOS: 12/09/24 FINDINGS: Lines and Tubes: The endotracheal tube terminates 3.1 cm above the allen. Left chest tube is unchang ed. The enteric tube courses below the left hemidiaphragm and the tip extends outside the field of vi ew. Lungs: Left upper and lower lung zone opacities which are similar to the prior study. Bibasilar airs pace disease also unchanged. Pleura: No effusion. No pneumothorax. Cardiomediastinal contours: Unremarkable Bones: No acute osseous abnormality. IMPRESSION: 1. Stable position of the support lines and tubes. 2. No pneumothorax. No significant change in bilateral airspace disease.
[2024-12-10 06:17] LABS: Base Excess 5.8 mmol/L (-2.0-3.0)
--- NOTE | 2024-12-10 09:57 | DVHPN2 ---
Subjective Patient intubated and sedated Reviewed: Care Plan, H&P, Labs, Medications Changes from previous H/P or p: No Changes General: Per HPI Eyes: No Pain, No Vision change, No Conjunctivae inflammation, No Eyelid inflammation, No Other, No Redness ENT: No Ear pain, No Ear discharge, No Nose pain, No Nose discharge, No Nose congestion, No Mouth pain, No Mouth swelling, No Throat pain, No Throat swelling, No Other Cardiovascular: Chest Pain; No Palpitations, No Orthopnea, No Paroxysmal Noc. Dyspnea, No Edema, No Lt Headedness, No Other Respiratory: No Cough, No Dry; Shortness of breath; No SOB with excertion, No Wheezing, No Hemoptysis, No Pleuritic Pain, No Sputum, No Other Gastrointestinal: No Nausea, No Vomiting, No Abdominal Pain, No Diarrhea, No Constipation, No Melena, No Hematochezia, No Other Genitourinary: No Dysuria, No Frequency, No Incontinence, No Hematuria, No Retention, No Other Skin: No Rash, No Lesions, No Jaundice, No Bruising, No Other Objective Vitals Vital Signs Date Time Temp Pulse Resp B/P (MAP) Pulse Ox O2 Delivery O2 Flow Rate FiO2 12/10/24 09:45 82 18 159/90 (113) 90 12/10/24 09:42 40 12/10/24 08:26 Mechanical Ventilator+ 12/10/24 04:00 98.4 98.4 12/08/24 22:00 50.0 Intake/Output Intake and Output 12/10/24 07:00 Intake Total 1007.556 ml Output Total 1640 ml Balance -632.444 ml Intake Oral 20 ml IV Total 987.556 ml Output Urine Total 1600 ml Chest Tube Drainage Total 40 ml General Appearance: Alert, mild distress, Other Lungs: Clear to auscultation, Other (Mechanical ventilation, FiO2 40%) Chest/Breasts: Other (Chest tube to 20 cm of suction. Positive tiling. No air leak appreciated.) Cardiovascular: Regular rate, Normal S1, Normal S2 Abdomen: Normal bowel sounds Musculoskeletal: Normal sensory function, Normal motor function Neuro: Normal gait, Cranial nerves 3-12 NL Skin: Dry, Intact Psych/Mental Status: Mental status NL, Mood NL Medications Current Medications Medications Dose Ordered Sig/Brice Route Start Time Stop Time Status Last Admin Dose Admin Acetaminophen/ Hydrocodone Bitart 1 tab Q4HP PRN PO 12/07/24 10:45 12/08/24 00:17 1 TAB Ondansetron HCl 4 mg Q4HP PRN IV 12/07/24 10:45 12/07/24 16:07 4 MG Enoxaparin Sodium 40 mg DAILY SC 12/07/24 10:52 12/10/24 09:22 40 MG Acetaminophen 650 mg Q6HP PRN PO 12/07/24 10:45 Morphine Sulfate 2 mg Q4HPRN PRN IV 12/07/24 10:45 12/10/24 07:35 2 MG Ceftriaxone Sodium 50 ml @ 100 mls/hr DAILY@09 IV 12/08/24 09:00 12/10/24 09:22 100 MLS/HR Azithromycin 250 ml @ 125 mls/hr DAILY IV 12/08/24 10:00 12/10/24 09:22 125 MLS/HR Hydralazine HCl 10 mg Q6HP PRN IV 12/07/24 11:15 12/10/24 08:45 10 MG Amlodipine Besylate 10 mg DAILY PO 12/08/24 10:00 12/08/24 10:05 10 MG Folic Acid 1 mg DAILY PO 12/09/24 10:00 12/09/24 10:33 1 MG Multivitamins 1 tab DAILY PO 12/09/24 10:00 12/09/24 10:34 1 TAB Magnesium Oxide 400 mg DAILY PO 12/09/24 10:00 12/09/24 10:36 400 MG Thiamine HCl 100 mg DAILY PO 12/09/24 10:00 12/09/24 10:33 100 MG Lorazepam 1 mg Q4HPRN PRN IV 12/08/24 12:15 12/10/24 08:45 1 MG Propofol 100 ml @ 2.454 mls/ hr Q24H IV 12/08/24 23:00 12/10/24 01:02 22.086 MLS/HR Fentanyl Citrate 250 ml @ 2.5 mls/hr Q24H IV 12/08/24 23:00 12/09/24 23:43 15 MLS/HR Norepinephrine Bitartrate 250 ml @ 3.75 mls/hr Q24H IV 12/09/24 15:15 12/09/24 18:51 11.25 MLS/HR Laboratory Results Laboratory Tests 12/10/24 03:46 Chemistry Test 12/10/24 03:46 Calcium Level 8.9 mg/dL (8.7-10.4) Urinalysis Test 12/07/24 12:13 Urine Color Light-yellow (Yellow) Urine Clarity Clear (Clear) Urine pH 5.0 (5.0-9.0) Urine Specific [place] 1.024 (1.001-1.035) Urine Protein Trace (Negative) H Urine Ketones 2+ (Negative) H Urine Blood Negative /uL (Negative) Urine Nitrite Negative (Negative) Urine Bilirubin Negative (Negative) Urine Urobilinogen Normal mg/dL (Negative) Urine Leukocyte Esterase Negative /uL (Negative) Urine RBC 1 /hpf (0 - 3) Urine Microscopic WBC < 1 /HPF (0-3) Urine Squamous Epithelial Cells None seen /hpf (<5) Urine Bacteria None seen /hpf (None Seen) Urine Glucose 2+ mg/dL (Normal) H Blood Gas Results Test 12/10/24 06:12 Arterial Blood pH 7.464 (7.350-7.450) FiO2 % 40.0 Microbiology Microbiology Date/Time Source Procedure Growth Status 12/09/24 05:00 Nose MRSA Screen - Final Complete 12/07/24 11:30 Blood Blood Culture - Preliminary NO GROWTH AFTER 48 HOURS OF INCUBATION. Resulted Labs and/or images reviewed: Labs reviewed by me, Image(s) reviewed by me Assessment/Plan Assessment/Plan Impression: -acute hypoxic respiratory failure secondary to pneumothorax -multiple rib fractures with left pneumothorax -alcoholism -hypotension, secondary to sedation -sirs Plan: Events: Patient is self-extubated this a.m.. Currently on cool mist mask. -lorazepam p.r.n. withdrawal symptoms -PUD, DVT prophylaxis -chest x-ray reviewed. Continue chest tube suction. -continue current antibiotic therapy -continue MVI, thiamine -repeat labs in a.m. -start diet -we will place chest tube to water seal in a.m.. Repeat CT scan thereafter with possible removal if pneumothorax has remained resolved. Critical care time spent with patient discussing and formulating plan of care: 40 minutes. This does not include time spent performing procedures. This medical document was created using an electronic medical record system with [employer]ation system. Although this document has been carefully reviewed, there may still be some phonetic and typographical errors. These areas are purely typographical due to imperfections of the software programs, and do not reflect any compromise in the patient's medical care. Plan discussed with: Patient, Other (RN) My Orders Orders - GEORGE COULTER NP Procedure Category Date Status Time Norepinephrine 8 PHA 12/09/24 In Process Mg/250ml Kit 15:15 Cpap/Sed Vacation Med ORDERS 12/09/24 Transmitted Weaning 15:38 Cpap Trial For Am ORDERS 12/09/24 Transmitted 15:38 Chest Portable XY 12/10/24 Resulted 04:00 Abg W/ Co-Ox RT 12/10/24 Logged 05:23 Cpap/Sed Vacation Med ORDERS 12/10/24 Transmitted Weaning 07:44 Cpap Trial For Am ORDERS 12/10/24 Transmitted 07:44 Cpap/Sed Vacation Med ORDERS 12/10/24 Transmitted Weaning 09:23 Cpap Trial For Am ORDERS 12/10/24 Transmitted 09:23 Clear Liq Diet DIET 12/10/24 Transmitted Lunch Date of Service: December 10, 2024 Billing Provider: GEORGE COULTER NP Common Visit Codes: [id number] CARE 30-74 MIN GEORGE COULTER NP December 10, 2024 09:57
[2024-12-10 11:32] LABS: Base Excess 2.8 mmol/L (-2.0-3.0)
[2024-12-10 13:23] LABS: Base Excess 3.5 mmol/L (-2.0-3.0)
--- NOTE | 2024-12-10 13:51 | DVHINCON2 ---
Date of service: December 08, 2024 Referring Physician lydia andrew Reason for Consultation Ventilator management History of Present Illness HPI Patient is a 64-year-old gentleman with a history of substance abuse who presented with a blunt injury as a result of the fall while playing sports. Patient is altered and tested positive for amphetamines. The initially was found to have left-sided hemothorax and chest tube was placed by our ER. Patient admitted to ICU Past Medical History Cardiac: No pertinent Hx Pulmonary: No pertinent Hx Central Nervous System: No pertinent Hx GI: No pertinent Hx Hemotology/Oncology: No pertinent Hx Hepatobiliary: No pertinent Hx Psychiatric: No pertinent Hx Musculoskeletal: No pertinent Hx Rheumotologic: No pertinent Hx Infectious Disease: No peritnent Hx ENT: No pertinent Hx Renal/: No pertinent Hx Endocrine: No pertinent Hx Dermatology: No pertinent Hx Past Surgical History: No pertinent Hx Patient Family History: FH: HTN (hypertension) Review of Systems Comments intubated H&P Exam Vital Signs Vital Signs Date Time Temp Pulse Resp B/P (MAP) Pulse Ox O2 Delivery O2 Flow Rate FiO2 12/10/24 13:43 107 16 96 30.0 70 12/10/24 10:15 109/65 (80) 12/10/24 08:26 Mechanical Ventilator+ 12/10/24 04:00 98.4 98.4 General Appeara: Well developed, Well nourished Head Exam: Normal inspection Neck Exam: Normal inspection, Non-tender, Normal alignment Eye Exam: bilateral eye Normal inspection, bilateral eye PERRL, bilateral eye EOMI Ear Exam: bilateral ear Auricle normal, bilateral ear Canal normal Nasal Exam: Normal inspection Mouth: Normal Inspection Pulmonary/Respiratory: Normal inspection, Normal breath sounds, Chest non- tender Peripheral Pulses: 4+ carotid (R), 4+ carotid (L) Abdominal Exam: Normal bowel sounds Labs/Xrays Labs Test 12/10/24 13:18 12/10/24 11:25 12/10/24 06:12 12/10/24 03:46 Range/Units Blood Gas Specimen Type Arterial Blood Gas Sample Site Left radial Blood Gas Patient Temperature 37.0 Arterial Blood Date Drawn [id number] Arterial Blood pH 7.463 H 7.350-7.450 Arterial Blood Partial Pressure CO2 39.1 35.0-48.0 mmHg Arterial Blood Partial Pressure O2 87.3 83.0-108.0 mmHg Arterial Blood HCO3 27.4 21.0-28.0 mmol/L Arterial Blood Oxygen Saturation 96.4 94.0-98.0 % Arterial Blood Base Excess 3.5 H -2.0-3.0 mmol/L Arterial Blood Oxyhemoglobin 95.8 94.0-98.0 % Arterial Blood Carboxyhemoglobin 0.4 L 0.5-1.5 % Arterial Blood Methemoglobin 0.2 0.0-1.5 % Benjamin Test Yes Blood Gas Total Hemoglobin 14.60 13.5-17.5 g/dL Blood Gas Liter Flow 30.00 Blood Gas Modality High flow FiO2 % 80.0 Blood Gas Spontaneous Rate 28 Blood Gas Set Respiration Rate 20.0 Blood Gas Tidal Volume 500.0 Blood Gas PEEP or CPAP 5.0 White Blood Count 10.0 4.4-10.8 10^3/uL Red Blood Count 4.65 4.5-5.90 10^6/uL Hemoglobin 14.4 13.5-17.5 g/dL Hematocrit 42.5 # 41.0-53.0 % Mean Corpuscular Volume 91.4 80.0-100.0 fL Mean Corpuscular Hemoglobin 31.1 28.0-32.0 pg Mean Corpuscular Hemoglobin Concent 34.0 32.0-36.0 g/dL Red Cell Distribution Width 13.4 11.8-14.3 % Platelet Count 287 140-450 10^3/uL Mean Platelet Volume 7.6 6.9-10.8 fL Neutrophils (%) (Auto) 64.5 37.0-80.0 % Lymphocytes (%) (Auto) 18.0 10.0-50.0 % Monocytes (%) (Auto) 13.8 H 0.0-12.0 % Eosinophils (%) (Auto) 3.0 0.0-7.0 % Basophils (%) (Auto) 0.7 0.0-2.0 % Neutrophils # (Auto) 6.5 1.6-8.6 10 ^3/uL Lymphocytes # (Auto) 1.8 0.4-5.4 10 ^3/uL Monocytes # (Auto) 1.4 H 0-1.3 10 ^3/uL Eosinophils # (Auto) 0.3 0-0.8 10 ^3/uL Basophils # (Auto) 0.1 0-0.2 10 ^3/uL Nucleated Red Blood Cells 0.0 % Sodium Level 139 136-145 mmol/L Potassium Level 3.8 3.5-5.1 mmol/L Chloride Level 100 98-107 mmol/L Carbon Dioxide Level 32 H 20-31 mmol/L Anion Gap 7 5-15 Blood Urea Nitrogen 12 9-23 mg/dL Creatinine 0.99 0.700-1.30 mg/dL Glomerular Filtration Rate Calc 84 >90 mL/min BUN/Creatinine Ratio 12.1 10.0-20.0 Serum Glucose 107 H 74-106 mg/dL Calcium Level 8.9 8.7-10.4 mg/dL Test 12/08/24 09:58 12/08/24 04:50 12/07/24 12:13 12/07/24 03:30 Range/Units Blood Gas Critical Value Read Back yes Blood Gas Notified Whom Blood Gas Notified Time [id number] Blood Gas Notified By manager site lucien Total Bilirubin 0.8 0.2-1.0 mg/dL Aspartate Amino Transferase (AST) 37 13-40 U/L Alanine Aminotransferase (ALT) 25 7-40 U/L Alkaline Phosphatase 62 46-116 U/L Total Protein 7.4 5.7-8.2 g/dL Albumin 4.6 3.2-4.8 g/dL Urine Color Light-yellow Yellow Urine Clarity Clear Clear Urine pH 5.0 5.0-9.0 Urine Specific [place] 1.024 1.001-1.035 Urine Protein Trace H Negative Urine Ketones 2+ H Negative Urine Blood Negative Negative /uL Urine Nitrite Negative Negative Urine Bilirubin Negative Negative Urine Urobilinogen Normal Negative mg/dL Urine Leukocyte Esterase Negative Negative /uL Urine RBC 1 0 - 3 /hpf Urine Microscopic WBC < 1 0-3 /HPF Urine Squamous Epithelial Cells None seen <5 /hpf Urine Bacteria None seen None Seen /hpf Urine Glucose 2+ H Normal mg/dL Urine Opiates Screen Pos NEGATIVE Urine Fentanyl Screen Neg NEGATIVE Urine Barbiturates Screen Neg NEGATIVE Urine Phencyclidine Screen Neg NEGATIVE Urine Amphetamines Screen Neg NEGATIVE Urine Benzodiazepines Screen Neg NEGATIVE Urine Cocaine Screen Neg NEGATIVE Urine Cannabinoids Screen Neg NEGATIVE Troponin I High Sensitivity < 3 L </=54 ng/L Test 12/07/24 00:38 Range/Units Hemoglobin A1c 5.6 <5.7 % A1C B-Type Natriuretic Peptide 5.88 0-100 pg/mL Plasma/Serum Blood Alcohol 140.1 H <10 mg/dL Microbiology Date/Time Source Procedure Growth Status 12/09/24 05:00 Nose MRSA Screen - Final Complete 12/08/24 23:15 Sputum Gram Stain - Final Resulted 12/08/24 23:15 Sputum Respiratory Culture - Preliminary Resulted 12/07/24 11:30 Blood Blood Culture - Preliminary NO GROWTH AFTER 72 HOURS OF INCUBATION. Resulted Assessment/Plan Plan Acute hypoxemic respiratory failure Traumatic left-sided pneumothorax status post chest tube placement Substance abuse Pneumonia/aspiration Atelectasis Patient is seen and examined in the ICU Labs and imaging studies reviewed Management plan vent support/sedation as needed Antibiotics Mucomyst/bronchodilators Chest tube management continue as negative we will suction Pain control Monitor labs renal function Pressors as needed GI and DVT prophylaxis Critical care time 35 minutes Plan discussed with: Other (rn) SHANNEN SANCHEZ MD December 10, 2024 13:50
--- NOTE | 2024-12-10 13:53 | DVHPN2 ---
Progress Note - Dictate Date Seen: December 09, 2024 Has the PT tested + for MRSA If YES, has PT been informed?: No Medical Necessity Reason Pt with a Central, PICC or Fol: No vital signs Vital Sign Date Time Temp Pulse Resp B/P (MAP) Pulse Ox O2 Delivery O2 Flow Rate FiO2 12/10/24 13:43 107 16 96 30.0 70 12/10/24 10:15 109/65 (80) 12/10/24 08:26 Mechanical Ventilator+ 12/10/24 04:00 98.4 98.4 Total Intake and Output 12/09/24 12/09/24 12/10/24 15:00 23:00 07:00 Intake Total 360.998 ml 431.162 ml 215.396 ml Output Total 520 ml 1120 ml Balance 360.998 ml -88.838 ml -904.604 ml medications Current Medications Medications Dose Ordered Sig/Brice Route Start Time Stop Time Status Last Admin Dose Admin Acetaminophen/ Hydrocodone Bitart 1 tab Q4HP PRN PO 12/07/24 10:45 12/08/24 00:17 1 TAB Ondansetron HCl 4 mg Q4HP PRN IV 12/07/24 10:45 12/07/24 16:07 4 MG Enoxaparin Sodium 40 mg DAILY SC 12/07/24 10:52 12/10/24 09:22 40 MG Acetaminophen 650 mg Q6HP PRN PO 12/07/24 10:45 Morphine Sulfate 2 mg Q4HPRN PRN IV 12/07/24 10:45 12/10/24 07:35 2 MG Ceftriaxone Sodium 50 ml @ 100 mls/hr DAILY@09 IV 12/08/24 09:00 12/10/24 09:22 100 MLS/HR Azithromycin 250 ml @ 125 mls/hr DAILY IV 12/08/24 10:00 12/10/24 09:22 125 MLS/HR Hydralazine HCl 10 mg Q6HP PRN IV 12/07/24 11:15 12/10/24 08:45 10 MG Amlodipine Besylate 10 mg DAILY PO 12/08/24 10:00 12/08/24 10:05 10 MG Folic Acid 1 mg DAILY PO 12/09/24 10:00 12/09/24 10:33 1 MG Multivitamins 1 tab DAILY PO 12/09/24 10:00 12/09/24 10:34 1 TAB Magnesium Oxide 400 mg DAILY PO 12/09/24 10:00 12/09/24 10:36 400 MG Thiamine HCl 100 mg DAILY PO 12/09/24 10:00 12/09/24 10:33 100 MG Lorazepam 1 mg Q4HPRN PRN IV 12/08/24 12:15 12/10/24 08:45 1 MG Norepinephrine Bitartrate 250 ml @ 3.75 mls/hr Q24H IV 12/09/24 15:15 12/09/24 18:51 11.25 MLS/HR Lorazepam 1 mg Q6HP PRN IV 12/10/24 10:00 laboratory and microbiology Laboratory Tests 12/10/24 03:46 Test 12/10/24 03:46 Range/Units Serum Glucose 107 H 74-106 mg/dL Assessment/Plan Altered mental status Acute hypoxemic respiratory failure Substance abuse Left-sided pneumothorax Patient is seen and examined ICU events intubated on mechanical ventilation Labs reviewed Imaging studies reviewed Management plan Continue sedative/vent support IV fluids/ Chest tube management Empiric antibiotic Deescalate based on cultures Monitor renal function Pain control GI and DVT prophylaxis Critical care time 35 minutes Dietary Evaluation Review Protein Calorie Malnutrition: Severe Plan discussed with: Other (rn) SHANNEN SANCHEZ MD December 10, 2024 13:52
--- NOTE | 2024-12-10 13:54 | DVHPN2 ---
Progress Note - Dictate Date Seen: December 10, 2024 Has the PT tested + for MRSA If YES, has PT been informed?: No Medical Necessity Reason Pt with a Central, PICC or Fol: No vital signs Vital Sign Date Time Temp Pulse Resp B/P (MAP) Pulse Ox O2 Delivery O2 Flow Rate FiO2 12/10/24 13:43 107 16 96 30.0 70 12/10/24 10:15 109/65 (80) 12/10/24 08:26 Mechanical Ventilator+ 12/10/24 04:00 98.4 98.4 Total Intake and Output 12/09/24 12/09/24 12/10/24 15:00 23:00 07:00 Intake Total 360.998 ml 431.162 ml 215.396 ml Output Total 520 ml 1120 ml Balance 360.998 ml -88.838 ml -904.604 ml medications Current Medications Medications Dose Ordered Sig/Brice Route Start Time Stop Time Status Last Admin Dose Admin Acetaminophen/ Hydrocodone Bitart 1 tab Q4HP PRN PO 12/07/24 10:45 12/08/24 00:17 1 TAB Ondansetron HCl 4 mg Q4HP PRN IV 12/07/24 10:45 12/07/24 16:07 4 MG Enoxaparin Sodium 40 mg DAILY SC 12/07/24 10:52 12/10/24 09:22 40 MG Acetaminophen 650 mg Q6HP PRN PO 12/07/24 10:45 Morphine Sulfate 2 mg Q4HPRN PRN IV 12/07/24 10:45 12/10/24 07:35 2 MG Ceftriaxone Sodium 50 ml @ 100 mls/hr DAILY@09 IV 12/08/24 09:00 12/10/24 09:22 100 MLS/HR Azithromycin 250 ml @ 125 mls/hr DAILY IV 12/08/24 10:00 12/10/24 09:22 125 MLS/HR Hydralazine HCl 10 mg Q6HP PRN IV 12/07/24 11:15 12/10/24 08:45 10 MG Amlodipine Besylate 10 mg DAILY PO 12/08/24 10:00 12/08/24 10:05 10 MG Folic Acid 1 mg DAILY PO 12/09/24 10:00 12/09/24 10:33 1 MG Multivitamins 1 tab DAILY PO 12/09/24 10:00 12/09/24 10:34 1 TAB Magnesium Oxide 400 mg DAILY PO 12/09/24 10:00 12/09/24 10:36 400 MG Thiamine HCl 100 mg DAILY PO 12/09/24 10:00 12/09/24 10:33 100 MG Lorazepam 1 mg Q4HPRN PRN IV 12/08/24 12:15 12/10/24 08:45 1 MG Norepinephrine Bitartrate 250 ml @ 3.75 mls/hr Q24H IV 12/09/24 15:15 12/09/24 18:51 11.25 MLS/HR Lorazepam 1 mg Q6HP PRN IV 12/10/24 10:00 laboratory and microbiology Laboratory Tests 12/10/24 03:46 Test 12/10/24 03:46 Range/Units Serum Glucose 107 H 74-106 mg/dL Assessment/Plan Altered mental status Acute hypoxemic respiratory failure Substance abuse Left-sided pneumothorax Patient is seen and examined ICU events Patient has self extubated this morning Currently confused On high-flow oxygen Labs reviewed Imaging studies reviewed Management plan 02 as needed NPO swallow eval watch for withdrawal (h/o substance abuse) incent sp bronchodilators Empiric antibiotic Deescalate based on cultures Monitor renal function Pain control cont chest tube suction GI and DVT prophylaxis Critical care time 35 minutes Dietary Evaluation Review Protein Calorie Malnutrition: Severe Plan discussed with: Other (rn) SHANNEN SANCHEZ MD December 10, 2024 13:54
[2024-12-10] MEDS: LORazepam 2MG/ML-1ML VIAL IV PRN (15:47)
--- NOTE | 2024-12-10 17:02 | DVHNC2 ---
Chest Tube Indication: Pneumothorax Procedure: Sterile preparation Anesthetic: Lidocaine Site: L 5th intercostal space Drainage: Air Date of Service: December 08, 2024 Billing Provider: ROBERT VAZQUEZ MD Common Visit Codes: [id number] INP/OBS CARE (HIGH) Secondary Visit Codes: [id number] STANDBY SERVICE Consultation Codes: [id number] CONSULT <45MIN Procedure Codes: [id number] OF CHEST TUBE ROBERT VAZQUEZ MD December 10, 2024 17:02
[2024-12-10] MEDS: LABETALOL HCL 20 MG/4 ML VL IV ONE (21:11)
[2024-12-11] VITALS (43 sets, daily range): BP systolic 116–178; BP diastolic 64–116; PULSE 20–113; RESP 13–93; TEMP 98.3–99.5; O2SAT 89–97
[2024-12-11 04:14] LABS: Basophils # (auto) 0 10 ^3/uL (0-0.2); Basophils % (auto) 0.2 % (0.0-2.0); Eosinophils # (auto) 0.1 10 ^3/uL (0-0.8); Eosinophils % (auto) 0.8 % (0.0-7.0); Hematocrit 38.4 % (41.0-53.0); Hemoglobin 13.3 g/dL (13.5-17.5); Lymphocytes # (auto) 0.8 10 ^3/uL (0.4-5.4); Lymphocytes % (auto) 8.7 % (10.0-50.0); Mean Corpuscular Hemoglobin 30.9 pg (28.0-32.0); Mean Corpuscular Hgb Conc. 34.5 g/dL (32.0-36.0); Mean Corpuscular Volume 89.6 fL (80.0-100.0); Monocytes # (auto) 1.3 10 ^3/uL (0-1.3); Monocytes % (auto) 13.4 % (0.0-12.0); Neutrophils # (auto) 7.5 10 ^3/uL (1.6-8.6); Neutrophils % (auto) 76.9 % (37.0-80.0); Nucleated Red Blood Cells % 0.1 %; Platelet Count (auto) 273 10^3/uL (140-450); Red Blood Cells 4.29 10^6/uL (4.5-5.90); White Blood Cell 9.7 10^3/uL (4.4-10.8)
[2024-12-11 04:19] LABS: Anion Gap 10 (5-15); Carbon Dioxide 29 mmol/L (20-31); Sodium 136 mmol/L (136-145)
[2024-12-11 04:25] LABS: BUN/Creatinine Ratio 13.9 (10.0-20.0); Blood Urea Nitrogen 11 mg/dL (9-23); Glucose 104 mg/dL (74-106)
[2024-12-11 04:37] LABS: Chloride 97 mmol/L (98-107); Potassium 3.2 mmol/L (3.5-5.1)
--- NOTE | 2024-12-11 05:19 | DVH ---
EXAM: XR Chest, 1 View CLINICAL INDICATION: Chest Tube TECHNIQUE: Frontal view of the chest. COMPARISON: XY CHEST PORTABLE on DOS: 12/10/24, XY CHEST XRAY 1 VIEW on DOS: 12/09/24, XY CHEST XRAY 1 VIEW on DOS: 12/08/24, XY CHEST XRAY 1 VIEW on DOS: 12/08/24, XY CHEST PORTABLE on DOS: 12/07/24 FINDINGS: LUNGS AND PLEURAL SPACES: Interstitial and patchy airspace disease of the left lung field. Indwell ing left-sided chest tube. No pneumothorax. HEART: Unremarkable. No cardiomegaly. MEDIASTINUM: Unremarkable. Normal mediastinal contour. BONES/JOINTS: Unremarkable. No acute fracture. OTHER FINDINGS: . IMPRESSION: Interstitial and patchy airspace disease of the left lung field. Indwelling left-sided chest tube. No pneumothorax.
[2024-12-11] MEDS: amLODIPine BESYLATE 5 MG TAB PO SCH (10:00)
--- NOTE | 2024-12-11 10:37 | DVHPN2 ---
Subjective Patient intubated and sedated Reviewed: Care Plan, H&P, Labs, Medications Changes from previous H/P or p: No Changes General: Per HPI Eyes: No Pain, No Vision change, No Conjunctivae inflammation, No Eyelid inflammation, No Other, No Redness ENT: No Ear pain, No Ear discharge, No Nose pain, No Nose discharge, No Nose congestion, No Mouth pain, No Mouth swelling, No Throat pain, No Throat swelling, No Other Cardiovascular: Chest Pain; No Palpitations, No Orthopnea, No Paroxysmal Noc. Dyspnea, No Edema, No Lt Headedness, No Other Respiratory: No Cough, No Dry; Shortness of breath; No SOB with excertion, No Wheezing, No Hemoptysis, No Pleuritic Pain, No Sputum, No Other Gastrointestinal: No Nausea, No Vomiting, No Abdominal Pain, No Diarrhea, No Constipation, No Melena, No Hematochezia, No Other Genitourinary: No Dysuria, No Frequency, No Incontinence, No Hematuria, No Retention, No Other Skin: No Rash, No Lesions, No Jaundice, No Bruising, No Other Objective Vitals Vital Signs Date Time Temp Pulse Resp B/P (MAP) Pulse Ox O2 Delivery O2 Flow Rate FiO2 12/11/24 10:00 92 22 147/88 (107) 91 12/11/24 08:00 99.1 99.1 12/11/24 07:38 Hi-Flow Heated NC+ 30 50 50 Intake/Output Intake and Output 12/11/24 07:00 Intake Total 200 ml Output Total 1270 ml Balance -1070 ml Intake Oral 200 ml Output Urine Total 1175 ml Chest Tube Drainage Total 95 ml General Appearance: Alert, Oriented X3 (Oriented x2), mild distress, Other (Somewhat encephalopathic) Lungs: Clear to auscultation, Other (Mechanical ventilation, FiO2 40%) Chest/Breasts: Other (Chest tube placed to water seal. No signs of air leak.) Cardiovascular: Regular rate, Normal S1, Normal S2 Abdomen: Normal bowel sounds Musculoskeletal: Normal sensory function, Normal motor function Neuro: Normal gait Skin: Dry, Intact Psych/Mental Status: Mental status NL, Mood NL Medications Current Medications Medications Dose Ordered Sig/Brice Route Start Time Stop Time Status Last Admin Dose Admin Acetaminophen/ Hydrocodone Bitart 1 tab Q4HP PRN PO 12/07/24 10:45 12/08/24 00:17 1 TAB Ondansetron HCl 4 mg Q4HP PRN IV 12/07/24 10:45 12/07/24 16:07 4 MG Enoxaparin Sodium 40 mg DAILY SC 12/07/24 10:52 12/11/24 07:22 40 MG Acetaminophen 650 mg Q6HP PRN PO 12/07/24 10:45 Morphine Sulfate 2 mg Q4HPRN PRN IV 12/07/24 10:45 12/11/24 06:43 2 MG Ceftriaxone Sodium 50 ml @ 100 mls/hr DAILY@09 IV 12/08/24 09:00 12/11/24 07:21 100 MLS/HR Azithromycin 250 ml @ 125 mls/hr DAILY IV 12/08/24 10:00 12/11/24 07:57 125 MLS/HR Hydralazine HCl 10 mg Q6HP PRN IV 12/07/24 11:15 12/11/24 03:58 10 MG Amlodipine Besylate 10 mg DAILY PO 12/08/24 10:00 12/11/24 07:25 10 MG Folic Acid 1 mg DAILY PO 12/09/24 10:00 12/11/24 07:26 1 MG Multivitamins 1 tab DAILY PO 12/09/24 10:00 12/11/24 07:25 1 TAB Magnesium Oxide 400 mg DAILY PO 12/09/24 10:00 12/11/24 07:25 400 MG Thiamine HCl 100 mg DAILY PO 12/09/24 10:00 12/11/24 07:26 100 MG Lorazepam 1 mg Q4HPRN PRN IV 12/08/24 12:15 12/11/24 03:59 1 MG Norepinephrine Bitartrate 250 ml @ 3.75 mls/hr Q24H IV 12/09/24 15:15 12/09/24 18:51 11.25 MLS/HR Lorazepam 1 mg Q6HP PRN IV 12/10/24 10:00 12/10/24 15:47 1 MG Amlodipine Besylate 10 mg DAILY PO 12/11/24 10:00 Laboratory Results Laboratory Tests 12/11/24 03:05 Chemistry Test 12/11/24 03:05 Calcium Level 9.0 mg/dL (8.7-10.4) Urinalysis Test 12/07/24 12:13 Urine Color Light-yellow (Yellow) Urine Clarity Clear (Clear) Urine pH 5.0 (5.0-9.0) Urine Specific [place] 1.024 (1.001-1.035) Urine Protein Trace (Negative) H Urine Ketones 2+ (Negative) H Urine Blood Negative /uL (Negative) Urine Nitrite Negative (Negative) Urine Bilirubin Negative (Negative) Urine Urobilinogen Normal mg/dL (Negative) Urine Leukocyte Esterase Negative /uL (Negative) Urine RBC 1 /hpf (0 - 3) Urine Microscopic WBC < 1 /HPF (0-3) Urine Squamous Epithelial Cells None seen /hpf (<5) Urine Bacteria None seen /hpf (None Seen) Urine Glucose 2+ mg/dL (Normal) H Blood Gas Results Test 12/10/24 11:25 12/10/24 13:18 Arterial Blood pH 7.444 (7.350-7.450) 7.463 (7.350-7.450) FiO2 % 98.0 80.0 Microbiology Microbiology Date/Time Source Procedure Growth Status 12/09/24 05:00 Nose MRSA Screen - Final Complete 12/08/24 23:15 Sputum Gram Stain - Final Resulted 12/08/24 23:15 Sputum Respiratory Culture - Preliminary Resulted 12/07/24 11:30 Blood Blood Culture - Preliminary NO GROWTH AFTER 72 HOURS OF INCUBATION. Resulted Labs and/or images reviewed: Labs reviewed by me, Image(s) reviewed by me Assessment/Plan Assessment/Plan Impression: -acute hypoxic respiratory failure secondary to pneumothorax -multiple rib fractures with left pneumothorax -alcoholism -hypotension, secondary to sedation -sirs Plan: Events: Patient placed on high-flow nasal cannula, currently at 30 L/min and 50% FiO2. Patient tolerating oral intake. Hypertensive this a.m.. Improved with oral antihypertensives. -start Librium 10 mg p.o. q.6 hours -start duo nebs b.i.d. -lorazepam p.r.n. withdrawal symptoms -PUD, DVT prophylaxis -placed chest x-ray to water seal -continue current antibiotic therapy -continue MVI, thiamine -Advanced to mechanical soft diet -transferred to step-down ICU. -CT scan in a.m.. If patient has chest tube output decreases and pneumothorax is absent, we will proceed with removing chest tube. Critical care time spent with patient discussing and formulating plan of care: 40 minutes. This does not include time spent performing procedures. This medical document was created using an electronic medical record system with [employer] computerized dictation system. Although this document has been carefully reviewed, there may still be some phonetic and typographical errors. These areas are purely typographical due to imperfections of the software programs, and do not reflect any compromise in the patient's medical care. Plan discussed with: Patient, Other (RN) My Orders Orders - GEORGE COULTER NP Procedure Category Date Status Time Abg W/ Co-Ox RT 12/10/24 Logged 11:24 Abg W/ Co-Ox RT 12/10/24 Logged 13:00 Chest Portable XY 12/11/24 Resulted 04:00 Chest Tube To Water MERYL 12/11/24 In Process Seal 09:47 Losartan Tablet PHA 12/11/24 Logged (Cozaar Tablet) 10:30 Chlordiazepoxide Hcl PHA 12/11/24 Logged Capsule (Librium Ca 12:00 Transfer Orders XFER 12/11/24 Transmitted 10:24 Mechanical Soft Diet DIET 12/11/24 Transmitted Lunch Date of Service: December 11, 2024 Billing Provider: GEORGE COULTER NP Common Visit Codes: [id number] CARE 30-74 MIN GEORGE COULTER NP December 11, 2024 10:37
[2024-12-11] MEDS: POTASSIUM EFFERVESENT TAB 25 MEQ PO ONE (11:57)
[2024-12-11] MEDS: chlordiazePOXIDE HCL 5 MG CAP PO SCH (11:58)
[2024-12-11] MEDS: LOSARTAN POTASSIUM 25 MG TAB PO SCH (11:58)
[2024-12-11] MEDS: IPRATROPIUM BROM 0.5 MG/2.5ML INH SOL NEB SCH (12:01)
[2024-12-11] MEDS: ALBUTEROL SULF 2.5 MG/0.5ML(0.5%) NEB SOLN NEB SCH (12:01)
--- NOTE | 2024-12-11 12:22 | DVHPN2 ---
Progress Note - Dictate Date Seen: December 11, 2024 Has the PT tested + for MRSA If YES, has PT been informed?: No Medical Necessity Reason Pt with a Central, PICC or Fol: No vital signs Vital Sign Date Time Temp Pulse Resp B/P (MAP) Pulse Ox O2 Delivery O2 Flow Rate FiO2 12/11/24 12:00 98.3 87 18 138/81 (100) 94 98.3 12/11/24 10:30 8.0 64 12/11/24 07:38 Hi-Flow Heated NC+ Total Intake and Output 12/10/24 12/10/24 12/11/24 15:00 23:00 07:00 Intake Total 200 ml Output Total 460 ml 810 ml Balance -460 ml -610 ml medications Current Medications Medications Dose Ordered Sig/Brice Route Start Time Stop Time Status Last Admin Dose Admin Acetaminophen/ Hydrocodone Bitart 1 tab Q4HP PRN PO 12/07/24 10:45 12/08/24 00:17 1 TAB Ondansetron HCl 4 mg Q4HP PRN IV 12/07/24 10:45 12/07/24 16:07 4 MG Enoxaparin Sodium 40 mg DAILY SC 12/07/24 10:52 12/11/24 07:22 40 MG Acetaminophen 650 mg Q6HP PRN PO 12/07/24 10:45 Morphine Sulfate 2 mg Q4HPRN PRN IV 12/07/24 10:45 12/11/24 06:43 2 MG Ceftriaxone Sodium 50 ml @ 100 mls/hr DAILY@09 IV 12/08/24 09:00 12/11/24 07:21 100 MLS/HR Azithromycin 250 ml @ 125 mls/hr DAILY IV 12/08/24 10:00 12/11/24 07:57 125 MLS/HR Hydralazine HCl 10 mg Q6HP PRN IV 12/07/24 11:15 12/11/24 03:58 10 MG Amlodipine Besylate 10 mg DAILY PO 12/08/24 10:00 12/11/24 07:25 10 MG Folic Acid 1 mg DAILY PO 12/09/24 10:00 12/11/24 07:26 1 MG Multivitamins 1 tab DAILY PO 12/09/24 10:00 12/11/24 07:25 1 TAB Magnesium Oxide 400 mg DAILY PO 12/09/24 10:00 12/11/24 07:25 400 MG Thiamine HCl 100 mg DAILY PO 12/09/24 10:00 12/11/24 07:26 100 MG Lorazepam 1 mg Q4HPRN PRN IV 12/08/24 12:15 12/11/24 03:59 1 MG Norepinephrine Bitartrate 250 ml @ 3.75 mls/hr Q24H IV 12/09/24 15:15 12/09/24 18:51 11.25 MLS/HR Lorazepam 1 mg Q6HP PRN IV 12/10/24 10:00 12/10/24 15:47 1 MG Losartan Potassium 25 mg DAILY PO 12/11/24 10:30 12/11/24 11:58 25 MG Chlordiazepoxide HCl 10 mg QID PO 12/11/24 12:00 12/11/24 11:58 10 MG Albuterol 2.5 mg Q6HWA [facility] 12/11/24 12:00 12/11/24 12:01 2.5 MG Ipratropium [place] 0.5 mg Q6HWA [facility] 12/11/24 12:00 12/11/24 12:01 0.5 MG laboratory and microbiology Laboratory Tests 12/11/24 03:05 Test 12/11/24 03:05 Range/Units Serum Glucose 104 74-106 mg/dL Assessment/Plan Altered mental status Acute hypoxemic respiratory failure Substance abuse Left-sided pneumothorax Patient is seen and examined ICU events pt delirious 02 better CXR stable Labs reviewed Imaging studies reviewed Management plan 02 as needed watch for withdrawal (h/o substance abuse) incent sp bronchodilators Empiric antibiotic Deescalate based on cultures Monitor renal function Pain control chest tube management water seal CXR in am ?remove in am GI and DVT prophylaxis Critical care time 35 minutes Dietary Evaluation Review Protein Calorie Malnutrition: Severe Plan discussed with: Other (rn) SHANNEN SANCHEZ MD December 11, 2024 12:22
[2024-12-11] MEDS: MORPHINE SULFATE 4 MG/ML SYR/VIAL IV PRN (13:31)
[2024-12-11] MEDS: HALOPERIDOL LACTATE 5 MG/ML INJ VIAL ONE (16:36)
[2024-12-11] MEDS: HALOPERIDOL LACTATE 5 MG/ML INJ VIAL IM PRN (16:37)
[2024-12-12] VITALS (27 sets, daily range): BP systolic 125–169; BP diastolic 41–101; PULSE 79–112; RESP 16–30; TEMP 97.8–99.2; O2SAT 87–100
[2024-12-12] MEDS ORDERED: HALOPERIDOL LACTATE 5 MG/ML INJ VIAL IM PRN
[2024-12-12] MEDS: diphenhdrAMINE HCL 50 MG/1 ML VL IM ONE (00:08)
[2024-12-12] MEDS: diphenhdrAMINE HCL 50 MG/1 ML VL IV ONE (00:14)
[2024-12-12] MEDS: HALOPERIDOL LACTATE 5 MG/ML INJ VIAL IM PRN (02:13)
[2024-12-12] MEDS ORDERED: QUET200T45 PO (03:52)
[2024-12-12] MEDS ORDERED: AMLO1TAB22 PO (03:53)
[2024-12-12] MEDS ORDERED: NAP500T PO (03:54)
[2024-12-12 05:54] LABS: Basophils # (auto) 0 10 ^3/uL (0-0.2); Basophils % (auto) 0.5 % (0.0-2.0); Eosinophils # (auto) 0.3 10 ^3/uL (0-0.8); Eosinophils % (auto) 2.8 % (0.0-7.0); Hematocrit 41.1 % (41.0-53.0); Hemoglobin 14.3 g/dL (13.5-17.5); Lymphocytes # (auto) 1.1 10 ^3/uL (0.4-5.4); Lymphocytes % (auto) 11.4 % (10.0-50.0); Mean Corpuscular Hemoglobin 31.3 pg (28.0-32.0); Mean Corpuscular Hgb Conc. 34.8 g/dL (32.0-36.0); Mean Corpuscular Volume 89.9 fL (80.0-100.0); Monocytes # (auto) 1.4 10 ^3/uL (0-1.3); Neutrophils # (auto) 7.1 10 ^3/uL (1.6-8.6); Neutrophils % (auto) 71.3 % (37.0-80.0); Platelet Count (auto) 317 10^3/uL (140-450); Red Blood Cells 4.57 10^6/uL (4.5-5.90); Red Cell Distribution Width 13.2 % (11.8-14.3); White Blood Cell 9.9 10^3/uL (4.4-10.8)
[2024-12-12 06:02] LABS: Anion Gap 6 (5-15); Carbon Dioxide 30 mmol/L (20-31); Chloride 104 mmol/L (98-107); Potassium 3.6 mmol/L (3.5-5.1); Sodium 140 mmol/L (136-145)
[2024-12-12 06:03] LABS: Calcium 10.2 mg/dL (8.7-10.4)
[2024-12-12 06:08] LABS: Blood Urea Nitrogen 9 mg/dL (9-23); Glucose 101 mg/dL (74-106)
--- NOTE | 2024-12-12 12:41 | DVHPN2 ---
Subjective Patient intubated and sedated Reviewed: Care Plan, H&P, Labs, Medications Changes from previous H/P or p: No Changes General: Per HPI Eyes: No Pain, No Vision change, No Conjunctivae inflammation, No Eyelid inflammation, No Other, No Redness ENT: No Ear pain, No Ear discharge, No Nose pain, No Nose discharge, No Nose congestion, No Mouth pain, No Mouth swelling, No Throat pain, No Throat swelling, No Other Cardiovascular: Chest Pain; No Palpitations, No Orthopnea, No Paroxysmal Noc. Dyspnea, No Edema, No Lt Headedness, No Other Respiratory: No Cough, No Dry; Shortness of breath; No SOB with excertion, No Wheezing, No Hemoptysis, No Pleuritic Pain, No Sputum, No Other Gastrointestinal: No Nausea, No Vomiting, No Abdominal Pain, No Diarrhea, No Constipation, No Melena, No Hematochezia, No Other Genitourinary: No Dysuria, No Frequency, No Incontinence, No Hematuria, No Retention, No Other Skin: No Rash, No Lesions, No Jaundice, No Bruising, No Other Objective Vitals Vital Signs Date Time Temp Pulse Resp B/P (MAP) Pulse Ox O2 Delivery O2 Flow Rate FiO2 12/12/24 12:09 96 22 144/84 12/12/24 12:00 98.5 91 98.5 12/12/24 11:46 Oxymizer 8 64 64 Intake/Output Intake and Output 12/12/24 07:00 Intake Total 600 ml Output Total 1845 ml Balance -1245 ml Intake Oral 600 ml Output Urine Total 1800 ml Chest Tube Drainage Total 45 ml General Appearance: Alert, Oriented X3 (Oriented x2), mild distress, Other (Somewhat encephalopathic) Lungs: Clear to auscultation, Other (Mechanical ventilation, FiO2 40%) Chest/Breasts: Other (Chest tube placed to water seal. No signs of air leak.) Cardiovascular: Regular rate, Normal S1, Normal S2 Abdomen: Normal bowel sounds Musculoskeletal: Normal sensory function, Normal motor function Neuro: Normal gait Skin: Dry, Intact Psych/Mental Status: Mental status NL, Mood NL Medications Current Medications Medications Dose Ordered Sig/Brice Route Start Time Stop Time Status Last Admin Dose Admin Acetaminophen/ Hydrocodone Bitart 1 tab Q4HP PRN PO 12/07/24 10:45 12/12/24 09:51 1 TAB Ondansetron HCl 4 mg Q4HP PRN IV 12/07/24 10:45 12/07/24 16:07 4 MG Enoxaparin Sodium 40 mg DAILY SC 12/07/24 10:52 12/12/24 09:48 40 MG Acetaminophen 650 mg Q6HP PRN PO 12/07/24 10:45 Ceftriaxone Sodium 50 ml @ 100 mls/hr DAILY@09 IV 12/08/24 09:00 12/12/24 09:48 100 MLS/HR Azithromycin 250 ml @ 125 mls/hr DAILY IV 12/08/24 10:00 12/12/24 09:53 125 MLS/HR Hydralazine HCl 10 mg Q6HP PRN IV 12/07/24 11:15 12/12/24 04:33 10 MG Amlodipine Besylate 10 mg DAILY PO 12/08/24 10:00 12/12/24 09:50 10 MG Folic Acid 1 mg DAILY PO 12/09/24 10:00 12/12/24 09:51 1 MG Multivitamins 1 tab DAILY PO 12/09/24 10:00 12/12/24 09:52 1 TAB Magnesium Oxide 400 mg DAILY PO 12/09/24 10:00 12/12/24 09:55 400 MG Thiamine HCl 100 mg DAILY PO 12/09/24 10:00 12/12/24 09:52 100 MG Norepinephrine Bitartrate 250 ml @ 3.75 mls/hr Q24H IV 12/09/24 15:15 12/09/24 18:51 11.25 MLS/HR Lorazepam 1 mg Q6HP PRN IV 12/10/24 10:00 12/12/24 05:50 1 MG Losartan Potassium 25 mg DAILY PO 12/11/24 10:30 12/12/24 09:56 25 MG Chlordiazepoxide HCl 10 mg QID PO 12/11/24 12:00 12/12/24 12:14 10 MG Albuterol 2.5 mg Q6HWA NEB 12/11/24 12:00 12/12/24 11:45 2.5 MG Ipratropium [place] 0.5 mg Q6HWA NEB 12/11/24 12:00 12/12/24 11:45 0.5 MG Morphine Sulfate 2 mg Q4HPRN PRN IV 12/11/24 13:30 12/12/24 12:09 2 MG Haloperidol Lactate 2.5 mg Q6HP PRN IM 12/12/24 00:30 12/12/24 02:13 2.5 MG Laboratory Results Laboratory Tests 12/12/24 04:55 Chemistry Test 12/12/24 04:55 Calcium Level 10.2 mg/dL (8.7-10.4) Urinalysis Test 12/07/24 12:13 Urine Color Light-yellow (Yellow) Urine Clarity Clear (Clear) Urine pH 5.0 (5.0-9.0) Urine Specific [place] 1.024 (1.001-1.035) Urine Protein Trace (Negative) H Urine Ketones 2+ (Negative) H Urine Blood Negative /uL (Negative) Urine Nitrite Negative (Negative) Urine Bilirubin Negative (Negative) Urine Urobilinogen Normal mg/dL (Negative) Urine Leukocyte Esterase Negative /uL (Negative) Urine RBC 1 /hpf (0 - 3) Urine Microscopic WBC < 1 /HPF (0-3) Urine Squamous Epithelial Cells None seen /hpf (<5) Urine Bacteria None seen /hpf (None Seen) Urine Glucose 2+ mg/dL (Normal) H Microbiology Microbiology Date/Time Source Procedure Growth Status 12/09/24 05:00 Nose MRSA Screen - Final Complete 12/08/24 23:15 Sputum Gram Stain - Final Complete 12/08/24 23:15 Sputum Respiratory Culture - Final Complete 12/07/24 11:30 Blood Blood Culture - Final NO GROWTH AFTER 5 DAYS OF INCUBATION. Complete Labs and/or images reviewed: Labs reviewed by me, Image(s) reviewed by me Assessment/Plan Assessment/Plan Impression: -acute hypoxic respiratory failure secondary to pneumothorax -multiple rib fractures with left pneumothorax -alcoholism -hypotension, secondary to sedation -sirs -acute alcohol withdrawal -community-acquired pneumonia, Gram-positive/Gram-negative etiology Plan: Events: Patient now on Oxymizer. Repeat CT scan performed today reveals resolution of pneumothorax with chest tube to water seal. Defer to model maker [employer] for removal of chest tube -continue Librium, p.r.n. Haldol -start duo nebs b.i.d. -lorazepam p.r.n. withdrawal symptoms -PUD, DVT prophylaxis -placed chest x-ray to water seal -continue current antibiotic therapy -continue MVI, thiamine -transferred to step-down ICU. Critical care time spent with patient discussing and formulating plan of care: 40 minutes. This does not include time spent performing procedures. This medical document was created using an electronic medical record system with [employer] dictation system. Although this document has been carefully reviewed, there may still be some phonetic and typographical errors. These areas are purely typographical due to imperfections of the software programs, and do not reflect any compromise in the patient's medical care. Plan discussed with: Patient, Other (RN) My Orders Orders - GEORGE COULTER NP Procedure Category Date Status Time Sitter At Bedside ORDERS 12/11/24 Transmitted 16:[address] 12/12/24 Taken 09:41 Date of Service: December 12, 2024 Billing Provider: GEORGE COULTER NP Common Visit Codes: [id number] CARE 30-74 MIN GEORGE COULTER NP December 12, 2024 12:41
--- NOTE | 2024-12-12 12:59 | DVH ---
Procedure: CT CHEST WITHOUT CONTRAST Reason for study/Clinical History: reassess pneumothorax Comparison Study: CT CHEST WITHOUT CONTRAST on DOS: 12/07/24 TECHNIQUE: Multidetector CT of the chest was performed from the lung apices to the upper abdomen with out the use of intravenous contract. Axial, coronal and sagittal multiplanar reformats were performed . Radiation Dose Information: CT Dose: CTDI volume is 15.39 mGy. Dose-length product is 526.28 mGy*cm The dose indicators for CT are the volume Computed Tomography (CT) Dose Index (CTDIvol) and the Dose Length Product (DLP), and are measured in units of mGy and mGy-cm, respectively. These indicators are not patient dose, but values generated from the CT scanner acquisition factors. The report includes radiation exposure data for exposures received during this examination. FINDINGS: Lower neck: Unremarkable. Lungs: Bilateral lower lobe subsegmental atelectasis. Heart/Vascular Structures: Cardiomegaly. Coronary artery calcifications. Vascular calcifications of t he aorta. Lymph Nodes: No adenopathy Pleura: Small bilateral pleural effusions. Musculoskeletal: No acute osseous abnormality. Unchanged left rib fractures. Soft tissues: Normal. Upper abdomen: Limited portions of the upper abdomen are unremarkable. IMPRESSION: No appreciable pneumothorax with left chest tube in-situ.
--- NOTE | 2024-12-12 15:12 | DVHPN2 ---
Progress Note - Dictate Date Seen: December 12, 2024 Has the PT tested + for MRSA If YES, has PT been informed?: No Medical Necessity Reason Pt with a Central, PICC or Fol: No vital signs Vital Sign Date Time Temp Pulse Resp B/P (MAP) Pulse Ox O2 Delivery O2 Flow Rate FiO2 12/12/24 14:00 99 12/12/24 12:39 19 145/78 12/12/24 12:00 98.5 91 98.5 12/12/24 11:46 Oxymizer 8 64 64 Total Intake and Output 12/11/24 12/11/24 12/12/24 13:00 21:00 05:00 Intake Total 300 ml Output Total 1320 ml Balance -1020 ml medications Current Medications Medications Dose Ordered Sig/Brice Route Start Time Stop Time Status Last Admin Dose Admin Acetaminophen/ Hydrocodone Bitart 1 tab Q4HP PRN PO 12/07/24 10:45 12/12/24 09:51 1 TAB Ondansetron HCl 4 mg Q4HP PRN IV 12/07/24 10:45 12/07/24 16:07 4 MG Enoxaparin Sodium 40 mg DAILY SC 12/07/24 10:52 12/12/24 09:48 40 MG Acetaminophen 650 mg Q6HP PRN PO 12/07/24 10:45 Ceftriaxone Sodium 50 ml @ 100 mls/hr DAILY@09 IV 12/08/24 09:00 12/12/24 09:48 100 MLS/HR Azithromycin 250 ml @ 125 mls/hr DAILY IV 12/08/24 10:00 12/12/24 09:53 125 MLS/HR Hydralazine HCl 10 mg Q6HP PRN IV 12/07/24 11:15 12/12/24 04:33 10 MG Amlodipine Besylate 10 mg DAILY PO 12/08/24 10:00 12/12/24 09:50 10 MG Folic Acid 1 mg DAILY PO 12/09/24 10:00 12/12/24 09:51 1 MG Multivitamins 1 tab DAILY PO 12/09/24 10:00 12/12/24 09:52 1 TAB Magnesium Oxide 400 mg DAILY PO 12/09/24 10:00 12/12/24 09:55 400 MG Thiamine HCl 100 mg DAILY PO 12/09/24 10:00 12/12/24 09:52 100 MG Norepinephrine Bitartrate 250 ml @ 3.75 mls/hr Q24H IV 12/09/24 15:15 12/09/24 18:51 11.25 MLS/HR Lorazepam 1 mg Q6HP PRN IV 12/10/24 10:00 12/12/24 05:50 1 MG Losartan Potassium 25 mg DAILY PO 12/11/24 10:30 12/12/24 09:56 25 MG Chlordiazepoxide HCl 10 mg QID PO 12/11/24 12:00 12/12/24 12:14 10 MG Albuterol 2.5 mg Q6HWA NEB 12/11/24 12:00 12/12/24 11:45 2.5 MG Ipratropium [place] 0.5 mg Q6HWA [facility] 12/11/24 12:00 12/12/24 11:45 0.5 MG Morphine Sulfate 2 mg Q4HPRN PRN IV 12/11/24 13:30 12/12/24 12:09 2 MG Haloperidol Lactate 2.5 mg Q6HP PRN IM 12/12/24 00:30 12/12/24 02:13 2.5 MG laboratory and microbiology Laboratory Tests 12/12/24 04:55 Test 12/12/24 04:55 Range/Units Serum Glucose 101 74-106 mg/dL Assessment/Plan Altered mental status Acute hypoxemic respiratory failure Substance abuse Left-sided pneumothorax Patient is seen and examined ICU events on 10 liters facemask patient restrained chest tube was removed at the beside by myself Labs reviewed Imaging studies reviewed Management plan 02 as needed watch for withdrawal (h/o substance abuse) incent sp bronchodilators Empiric antibiotic Deescalate based on cultures Monitor renal function Pain control GI and DVT prophylaxis Critical care time 35 minutes Dietary Evaluation Review Comments: Continue current POC Expected Outcomes/Goals: To meet >75% estimated needs Fu 5-7 days Protein Calorie Malnutrition: Severe Plan discussed with: Other (Rn) SHANNEN SANCHEZ MD December 12, 2024 15:12
[2024-12-13] VITALS (30 sets, daily range): BP systolic 92–183; BP diastolic 52–103; PULSE 82–108; RESP 16–34; TEMP 98.3–99.4; O2SAT 88–100
[2024-12-13 05:05] LABS: Basophils # (auto) 0.1 10 ^3/uL (0-0.2); Basophils % (auto) 0.6 % (0.0-2.0); Eosinophils # (auto) 0.4 10 ^3/uL (0-0.8); Eosinophils % (auto) 4.4 % (0.0-7.0); Hematocrit 39.9 % (41.0-53.0); Lymphocytes # (auto) 1.6 10 ^3/uL (0.4-5.4); Lymphocytes % (auto) 17.3 % (10.0-50.0); Mean Corpuscular Hemoglobin 31.3 pg (28.0-32.0); Mean Corpuscular Hgb Conc. 35.1 g/dL (32.0-36.0); Mean Corpuscular Volume 89.3 fL (80.0-100.0); Monocytes # (auto) 1.2 10 ^3/uL (0-1.3); Monocytes % (auto) 13.1 % (0.0-12.0); Neutrophils % (auto) 64.6 % (37.0-80.0); Nucleated Red Blood Cells % 0.1 %; Platelet Count (auto) 325 10^3/uL (140-450); Red Blood Cells 4.47 10^6/uL (4.5-5.90); Red Cell Distribution Width 13.2 % (11.8-14.3); White Blood Cell 9.2 10^3/uL (4.4-10.8)
[2024-12-13 05:18] LABS: Chloride 106 mmol/L (98-107); Sodium 139 mmol/L (136-145)
[2024-12-13 05:19] LABS: Anion Gap 5 (5-15); Carbon Dioxide 28 mmol/L (20-31)
[2024-12-13 05:24] LABS: BUN/Creatinine Ratio 13.2 (10.0-20.0); Blood Urea Nitrogen 10 mg/dL (9-23)
[2024-12-13 05:27] LABS: Glucose 107 mg/dL (74-106); Potassium 3.5 mmol/L (3.5-5.1)
--- NOTE | 2024-12-13 09:47 | DVHPN2 ---
Progress Note - Dictate Date Seen: December 13, 2024 Has the PT tested + for MRSA If YES, has PT been informed?: No Medical Necessity Reason Pt with a Central, PICC or Fol: No vital signs Vital Sign Date Time Temp Pulse Resp B/P (MAP) Pulse Ox O2 Delivery O2 Flow Rate FiO2 12/13/24 09:00 94 34 90 12/13/24 08:15 98.9 98.9 12/13/24 06:02 Cool Aerosol 12 70 70 Total Intake and Output 12/12/24 12/12/24 12/13/24 15:00 23:00 07:00 Intake Total 410 ml 810 ml 300 ml Output Total 550 ml 500 ml Balance 410 ml 260 ml -200 ml medications Current Medications Medications Dose Ordered Sig/Brice Route Start Time Stop Time Status Last Admin Dose Admin Acetaminophen/ Hydrocodone Bitart 1 tab Q4HP PRN PO 12/07/24 10:45 12/13/24 06:18 1 TAB Ondansetron HCl 4 mg Q4HP PRN IV 12/07/24 10:45 12/07/24 16:07 4 MG Enoxaparin Sodium 40 mg DAILY SC 12/07/24 10:52 12/12/24 09:48 40 MG Acetaminophen 650 mg Q6HP PRN PO 12/07/24 10:45 Ceftriaxone Sodium 50 ml @ 100 mls/hr DAILY@09 IV 12/08/24 09:00 12/12/24 09:48 100 MLS/HR Azithromycin 250 ml @ 125 mls/hr DAILY IV 12/08/24 10:00 12/12/24 09:53 125 MLS/HR Hydralazine HCl 10 mg Q6HP PRN IV 12/07/24 11:15 12/12/24 04:33 10 MG Amlodipine Besylate 10 mg DAILY PO 12/08/24 10:00 12/12/24 09:50 10 MG Folic Acid 1 mg DAILY PO 12/09/24 10:00 12/12/24 09:51 1 MG Multivitamins 1 tab DAILY PO 12/09/24 10:00 12/12/24 09:52 1 TAB Magnesium Oxide 400 mg DAILY PO 12/09/24 10:00 12/12/24 09:55 400 MG Thiamine HCl 100 mg DAILY PO 12/09/24 10:00 12/12/24 09:52 100 MG Norepinephrine Bitartrate 250 ml @ 3.75 mls/hr Q24H IV 12/09/24 15:15 12/09/24 18:51 11.25 MLS/HR Lorazepam 1 mg Q6HP PRN IV 12/10/24 10:00 12/13/24 00:00 1 MG Losartan Potassium 25 mg DAILY PO 12/11/24 10:30 12/12/24 09:56 25 MG Chlordiazepoxide HCl 10 mg QID PO 12/11/24 12:00 12/13/24 05:39 10 MG Albuterol 2.5 mg Q6HWA [facility] 12/11/24 12:00 12/13/24 06:02 2.5 MG Ipratropium [place] 0.5 mg Q6HWA [facility] 12/11/24 12:00 12/13/24 06:02 0.5 MG Morphine Sulfate 2 mg Q4HPRN PRN IV 12/11/24 13:30 12/13/24 05:08 2 MG Haloperidol Lactate 2.5 mg Q6HP PRN IM 12/12/24 00:30 12/12/24 02:13 2.5 MG laboratory and microbiology Laboratory Tests 12/13/24 04:30 Test 12/13/24 04:30 Range/Units Serum Glucose 107 H 74-106 mg/dL Assessment/Plan Altered mental status Acute hypoxemic respiratory failure Substance abuse Left-sided pneumothorax Patient is seen and examined ICU events remains on on 10 liters facemask mentation improving Labs reviewed Imaging studies reviewed A chest x-ray shows bilateral infiltrates at the bases/small to moderate right pleural effusion Management plan 02 as needed watch for withdrawal (h/o substance abuse) incent sp bronchodilators Continue Lasix Monitor renal function replace electrolytes Empiric antibiotic Deescalate based on cultures Monitor renal function Pain control GI and DVT prophylaxis Critical care time 35 minutes Dietary Evaluation Review Comments: Continue current POC Expected Outcomes/Goals: To meet >75% estimated needs Fu 5-7 days Protein Calorie Malnutrition: Severe Plan discussed with: Other (rn) SHANNEN SANCHEZ MD December 13, 2024 09:47
--- NOTE | 2024-12-13 10:07 | DVH ---
EXAM: XR Chest, 1 View CLINICAL INDICATION: pna TECHNIQUE: Frontal view of the chest. COMPARISON: XY CHEST PORTABLE on DOS: 12/11/24, XY CHEST PORTABLE on DOS: 12/10/24, XY CHEST XRAY 1 V IEW on DOS: 12/09/24, XY CHEST XRAY 1 VIEW on DOS: 12/08/24, XY CHEST XRAY 1 VIEW on DOS: 12/08/24 FINDINGS: LUNGS AND PLEURAL SPACES: Bibasilar atelectasis or pneumonia. Left perihilar airspace disease. No pneumothorax. HEART: Unremarkable. No cardiomegaly. MEDIASTINUM: Unremarkable. Normal mediastinal contour. BONES/JOINTS: Unremarkable. No acute fracture. OTHER FINDINGS: . IMPRESSION: 1. Bibasilar atelectasis or pneumonia. 2. Left perihilar airspace disease.
--- NOTE | 2024-12-13 12:57 | DVHPN2 ---
Subjective Patient alert and oriented x2. Able to follow commands. Denies any symptoms at this time. Reviewed: Care Plan, H&P, Labs, Medications Changes from previous H/P or p: Changes General: Per HPI Eyes: No Pain, No Vision change, No Conjunctivae inflammation, No Eyelid inflammation, No Other, No Redness ENT: No Ear pain, No Ear discharge, No Nose pain, No Nose discharge, No Nose congestion, No Mouth pain, No Mouth swelling, No Throat pain, No Throat swelling, No Other Cardiovascular: Chest Pain; No Palpitations, No Orthopnea, No Paroxysmal Noc. Dyspnea, No Edema, No Lt Headedness, No Other Respiratory: No Cough, No Dry; Shortness of breath; No SOB with excertion, No Wheezing, No Hemoptysis, No Pleuritic Pain, No Sputum, No Other Gastrointestinal: No Nausea, No Vomiting, No Abdominal Pain, No Diarrhea, No Constipation, No Melena, No Hematochezia, No Other Genitourinary: No Dysuria, No Frequency, No Incontinence, No Hematuria, No Retention, No Other Skin: No Rash, No Lesions, No Jaundice, No Bruising, No Other Objective Vitals Vital Signs Date Time Temp Pulse Resp B/P (MAP) Pulse Ox O2 Delivery O2 Flow Rate FiO2 12/13/24 12:00 98.4 93 25 127/87 (100) 95 98.4 12/13/24 11:24 Cool Aerosol 12 70 70 Intake/Output Intake and Output 12/13/24 07:00 Intake Total 1520 ml Output Total 1050 ml Balance 470 ml Intake Oral 1220 ml IV Total 300 ml Output Urine Total 1050 ml General Appearance: Alert, Oriented X3 (Oriented x2), mild distress, Other (Somewhat encephalopathic) HEENT: PERRLA Lungs: Clear to auscultation, Other (Mechanical ventilation, FiO2 40%) Chest/Breasts: Other (Chest tube placed to water seal. No signs of air leak.) Cardiovascular: Regular rate, Normal S1, Normal S2 Abdomen: Normal bowel sounds Musculoskeletal: Normal sensory function, Normal motor function Neuro: Normal speech, Cranial nerves 3-12 NL Skin: Dry, Intact Psych/Mental Status: Mental status NL, Mood NL Medications Current Medications Medications Dose Ordered Sig/Brice Route Start Time Stop Time Status Last Admin Dose Admin Acetaminophen/ Hydrocodone Bitart 1 tab Q4HP PRN PO 12/07/24 10:45 12/13/24 10:41 1 TAB Ondansetron HCl 4 mg Q4HP PRN IV 12/07/24 10:45 12/07/24 16:07 4 MG Enoxaparin Sodium 40 mg DAILY SC 12/07/24 10:52 12/13/24 10:59 40 MG Acetaminophen 650 mg Q6HP PRN PO 12/07/24 10:45 Ceftriaxone Sodium 50 ml @ 100 mls/hr DAILY@09 IV 12/08/24 09:00 12/13/24 09:56 100 MLS/HR Azithromycin 250 ml @ 125 mls/hr DAILY IV 12/08/24 10:00 12/13/24 10:43 125 MLS/HR Hydralazine HCl 10 mg Q6HP PRN IV 12/07/24 11:15 12/12/24 04:33 10 MG Amlodipine Besylate 10 mg DAILY PO 12/08/24 10:00 12/13/24 10:45 10 MG Folic Acid 1 mg DAILY PO 12/09/24 10:00 12/13/24 10:48 1 MG Multivitamins 1 tab DAILY PO 12/09/24 10:00 12/13/24 10:46 1 TAB Magnesium Oxide 400 mg DAILY PO 12/09/24 10:00 12/13/24 10:47 400 MG Thiamine HCl 100 mg DAILY PO 12/09/24 10:00 12/13/24 10:46 100 MG Norepinephrine Bitartrate 250 ml @ 3.75 mls/hr Q24H IV 12/09/24 15:15 12/09/24 18:51 11.25 MLS/HR Lorazepam 1 mg Q6HP PRN IV 12/10/24 10:00 12/13/24 00:00 1 MG Losartan Potassium 25 mg DAILY PO 12/11/24 10:30 12/13/24 10:47 25 MG Chlordiazepoxide HCl 10 mg QID PO 12/11/24 12:00 12/13/24 05:39 10 MG Albuterol 2.5 mg Q6HWA NEB 12/11/24 12:00 12/13/24 11:24 2.5 MG Ipratropium [place] 0.5 mg Q6HWA NEB 12/11/24 12:00 12/13/24 11:24 0.5 MG Morphine Sulfate 2 mg Q4HPRN PRN IV 12/11/24 13:30 12/13/24 05:08 2 MG Haloperidol Lactate 2.5 mg Q6HP PRN IM 12/12/24 00:30 12/12/24 02:13 2.5 MG Laboratory Results Laboratory Tests 12/13/24 04:30 Chemistry Test 12/13/24 04:30 Calcium Level 10.0 mg/dL (8.7-10.4) Urinalysis Test 12/07/24 12:13 Urine Color Light-yellow (Yellow) Urine Clarity Clear (Clear) Urine pH 5.0 (5.0-9.0) Urine Specific [place] 1.024 (1.001-1.035) Urine Protein Trace (Negative) H Urine Ketones 2+ (Negative) H Urine Blood Negative /uL (Negative) Urine Nitrite Negative (Negative) Urine Bilirubin Negative (Negative) Urine Urobilinogen Normal mg/dL (Negative) Urine Leukocyte Esterase Negative /uL (Negative) Urine RBC 1 /hpf (0 - 3) Urine Microscopic WBC < 1 /HPF (0-3) Urine Squamous Epithelial Cells None seen /hpf (<5) Urine Bacteria None seen /hpf (None Seen) Urine Glucose 2+ mg/dL (Normal) H Microbiology Microbiology Date/Time Source Procedure Growth Status 12/09/24 05:00 Nose MRSA Screen - Final Complete 12/08/24 23:15 Sputum Gram Stain - Final Complete 12/08/24 23:15 Sputum Respiratory Culture - Final Complete 12/07/24 11:30 Blood Blood Culture - Final NO GROWTH AFTER 5 DAYS OF INCUBATION. Complete Labs and/or images reviewed: Labs reviewed by me, Image(s) reviewed by me Assessment/Plan Assessment/Plan Impression: -acute hypoxic respiratory failure secondary to pneumothorax -multiple rib fractures with left pneumothorax -alcoholism -hypotension, secondary to sedation -sirs -acute alcohol withdrawal -community-acquired pneumonia, Gram-positive/Gram-negative etiology Plan: Events: Patient on 70% FiO2 via cool mist mask. Patient more alert and oriented. Restraints off. Chest tube removed yesterday. Repeat x-ray without any residual pneumothorax. Bibasilar atelectasis noted. -stop Librium, restart Seroquel -start duo nebs b.i.d. -lorazepam p.r.n. withdrawal symptoms -PUD, DVT prophylaxis -continue current antibiotic therapy -continue MVI, thiamine -decrease FiO2 requirements as tolerated. Given patient on 70% FiO2, keep in step-down ICU Critical care time spent with patient discussing and formulating plan of care: 40 minutes. This does not include time spent performing procedures. This medical document was created using an electronic medical record system with [employer] dictation system. Although this document has been carefully reviewed, there may still be some phonetic and typographical errors. These areas are purely typographical due to imperfections of the software programs, and do not reflect any compromise in the patient's medical care. Plan discussed with: Patient, Other (RN) My Orders Orders - GEORGE COULTER NP Procedure Category Date Status Time Stat Ekg For Chest MERYL 12/12/24 In Process Pain 23:41 Chest Xray 1 View XY 12/13/24 Resulted 08:39 Date of Service: December 13, 2024 Billing Provider: GEORGE COULTER NP Common Visit Codes: [id number] CARE 30-74 MIN GEORGE COULTER NP December 13, 2024 12:57
[2024-12-13] MEDS: QUEtiapine FUMARATE 100 MG TAB PO SCH (21:58)
[2024-12-14] VITALS (30 sets, daily range): BP systolic 94–155; BP diastolic 50–95; PULSE 89–117; RESP 15–29; TEMP 97.7–99; O2SAT 90–97
[2024-12-14 05:37] LABS: Basophils # (auto) 0.1 10 ^3/uL (0-0.2); Basophils % (auto) 0.7 % (0.0-2.0); Eosinophils # (auto) 0.3 10 ^3/uL (0-0.8); Eosinophils % (auto) 4.5 % (0.0-7.0); Hematocrit 39.3 % (41.0-53.0); Hemoglobin 13.2 g/dL (13.5-17.5); Lymphocytes % (auto) 25.8 % (10.0-50.0); Mean Corpuscular Hemoglobin 30.4 pg (28.0-32.0); Mean Corpuscular Hgb Conc. 33.5 g/dL (32.0-36.0); Mean Corpuscular Volume 90.7 fL (80.0-100.0); Monocytes % (auto) 13.3 % (0.0-12.0); Neutrophils # (auto) 4.3 10 ^3/uL (1.6-8.6); Neutrophils % (auto) 55.7 % (37.0-80.0); Platelet Count (auto) 357 10^3/uL (140-450); Red Blood Cells 4.33 10^6/uL (4.5-5.90); Red Cell Distribution Width 13.5 % (11.8-14.3); White Blood Cell 7.6 10^3/uL (4.4-10.8)
[2024-12-14 05:49] LABS: Calcium 10.2 mg/dL (8.7-10.4); Potassium 3.9 mmol/L (3.5-5.1); Sodium 141 mmol/L (136-145)
[2024-12-14 05:50] LABS: Anion Gap 7 (5-15); Carbon Dioxide 27 mmol/L (20-31)
[2024-12-14 05:55] LABS: Blood Urea Nitrogen 10 mg/dL (9-23); Glucose 100 mg/dL (74-106)
[2024-12-14 05:56] LABS: Chloride 107 mmol/L (98-107)
--- NOTE | 2024-12-14 13:27 | DVHPN2 ---
Subjective Patient alert and oriented x3. Ambulating now. Denies any shortness of breath Reviewed: Care Plan, H&P, Labs, Medications Changes from previous H/P or p: No Changes General: Per HPI Eyes: No Pain, No Vision change, No Conjunctivae inflammation, No Eyelid inflammation, No Other, No Redness ENT: No Ear pain, No Ear discharge, No Nose pain, No Nose discharge, No Nose congestion, No Mouth pain, No Mouth swelling, No Throat pain, No Throat swelling, No Other Cardiovascular: Chest Pain; No Palpitations, No Orthopnea, No Paroxysmal Noc. Dyspnea, No Edema, No Lt Headedness, No Other Respiratory: No Cough, No Dry; Shortness of breath; No SOB with excertion, No Wheezing, No Hemoptysis, No Pleuritic Pain, No Sputum, No Other Gastrointestinal: No Nausea, No Vomiting, No Abdominal Pain, No Diarrhea, No Constipation, No Melena, No Hematochezia, No Other Genitourinary: No Dysuria, No Frequency, No Incontinence, No Hematuria, No Retention, No Other Skin: No Rash, No Lesions, No Jaundice, No Bruising, No Other Objective Vitals Vital Signs Date Time Temp Pulse Resp B/P (MAP) Pulse Ox O2 Delivery O2 Flow Rate FiO2 12/14/24 12:00 97.9 110 28 133/75 (94) 94 97.9 12/14/24 12:00 Nasal Cannula* 5 40 Intake/Output Intake and Output 12/14/24 07:00 Intake Total 1700 ml Output Total 4100 ml Balance -2400 ml Intake Oral 1400 ml IV Total 300 ml Output Urine Total 4100 ml General Appearance: Alert, Oriented X3 (Oriented x2), Cooperative, mild distress, Other (Somewhat encephalopathic) HEENT: PERRLA Lungs: Clear to auscultation, Other (Mechanical ventilation, FiO2 40%) Chest/Breasts: Other (Chest tube placed to water seal. No signs of air leak.) Cardiovascular: Regular rate, Normal S1, Normal S2 Abdomen: Normal bowel sounds Musculoskeletal: Normal sensory function, Normal motor function Neuro: Normal speech, Cranial nerves 3-12 NL Skin: Dry, Intact Psych/Mental Status: Mental status NL, Mood NL Medications Current Medications Medications Dose Ordered Sig/Brice Route Start Time Stop Time Status Last Admin Dose Admin Acetaminophen/ Hydrocodone Bitart 1 tab Q4HP PRN PO 12/07/24 10:45 12/14/24 06:56 1 TAB Ondansetron HCl 4 mg Q4HP PRN IV 12/07/24 10:45 12/07/24 16:07 4 MG Enoxaparin Sodium 40 mg DAILY SC 12/07/24 10:52 12/14/24 09:21 40 MG Acetaminophen 650 mg Q6HP PRN PO 12/07/24 10:45 Ceftriaxone Sodium 50 ml @ 100 mls/hr DAILY@09 IV 12/08/24 09:00 12/14/24 09:22 100 MLS/HR Hydralazine HCl 10 mg Q6HP PRN IV 12/07/24 11:15 12/13/24 23:09 10 MG Amlodipine Besylate 10 mg DAILY PO 12/08/24 10:00 12/14/24 09:22 10 MG Folic Acid 1 mg DAILY PO 12/09/24 10:00 12/14/24 09:21 1 MG Multivitamins 1 tab DAILY PO 12/09/24 10:00 12/14/24 09:21 1 TAB Magnesium Oxide 400 mg DAILY PO 12/09/24 10:00 12/14/24 09:22 400 MG Thiamine HCl 100 mg DAILY PO 12/09/24 10:00 12/14/24 09:21 100 MG Lorazepam 1 mg Q6HP PRN IV 12/10/24 10:00 12/14/24 02:36 1 MG Losartan Potassium 25 mg DAILY PO 12/11/24 10:30 12/14/24 09:23 25 MG Albuterol 2.5 mg Q6HWA NEB 12/11/24 12:00 12/14/24 11:31 2.5 MG Ipratropium [place] 0.5 mg Q6HWA NEB 12/11/24 12:00 12/14/24 11:31 0.5 MG Morphine Sulfate 2 mg Q4HPRN PRN IV 12/11/24 13:30 12/13/24 05:08 2 MG Quetiapine Fumarate 100 mg HS PO 12/14/24 22:00 UNV Polyethylene Glycol 17 gm DAILY PO 12/14/24 13:30 UNV Benztropine Mesylate 1 mg DAILY PO 12/15/24 10:00 UNV Laboratory Results Laboratory Tests 12/14/24 05:04 Chemistry Test 12/14/24 05:04 Calcium Level 10.2 mg/dL (8.7-10.4) Urinalysis Test 12/07/24 12:13 Urine Color Light-yellow (Yellow) Urine Clarity Clear (Clear) Urine pH 5.0 (5.0-9.0) Urine Specific [place] 1.024 (1.001-1.035) Urine Protein Trace (Negative) H Urine Ketones 2+ (Negative) H Urine Blood Negative /uL (Negative) Urine Nitrite Negative (Negative) Urine Bilirubin Negative (Negative) Urine Urobilinogen Normal mg/dL (Negative) Urine Leukocyte Esterase Negative /uL (Negative) Urine RBC 1 /hpf (0 - 3) Urine Microscopic WBC < 1 /HPF (0-3) Urine Squamous Epithelial Cells None seen /hpf (<5) Urine Bacteria None seen /hpf (None Seen) Urine Glucose 2+ mg/dL (Normal) H Microbiology Microbiology Date/Time Source Procedure Growth Status 12/09/24 05:00 Nose MRSA Screen - Final Complete 12/08/24 23:15 Sputum Gram Stain - Final Complete 12/08/24 23:15 Sputum Respiratory Culture - Final Complete 12/07/24 11:30 Blood Blood Culture - Final NO GROWTH AFTER 5 DAYS OF INCUBATION. Complete Labs and/or images reviewed: Labs reviewed by me, Image(s) reviewed by me Assessment/Plan Assessment/Plan Impression: -acute hypoxic respiratory failure secondary to pneumothorax -multiple rib fractures with left pneumothorax -alcoholism -hypotension, secondary to sedation -sirs -acute alcohol withdrawal -community-acquired pneumonia, Gram-positive/Gram-negative etiology Plan: Events: Patient was assessed sitting in chair on room air with saturation of 91%. Reports that he is ambulating. DC [place] catheter. Decrease Seroquel to 100 mg p.o. q.h.s.. Bowel regimen. -continue DuoNebs with EzPAP -lorazepam p.r.n. withdrawal symptoms -PUD, DVT prophylaxis -continue current antibiotic therapy -continue MVI, thiamine Transfer to telemetry floor Total time spent with patient discussing and formulating plan of care: 35 minutes. This medical document was created using an electronic medical record system with [employer] dictation system. Although this document has been carefully reviewed, there may still be some phonetic and typographical errors. These areas are purely typographical due to imperfections of the software programs, and do not reflect any compromise in the patient's medical care. Plan discussed with: Patient, Other (RN) My Orders Orders - GEORGE COULTER NP Procedure Category Date Status Time D/C Nam SHETH 12/14/24 In Process 13:22 Quetiapine [address] [facility] 12/14/24 Logged Tablet (Seroquel Tab 22:00 Polyethylene Glycol PHA 12/14/24 Logged 17g Powder (Miralax 13:30 Benztropine Tablet PHA 12/15/24 Logged (Cogentin Tablet) 10:00 Date of Service: Dec 14, 2024 Billing Provider: GEORGE COULTER NP Common Visit Codes: [id number] INP/OBS CARE(HIGH) GEORGE COULTER NP Dec 14, 2024 13:27
--- NOTE | 2024-12-14 14:10 | DVHPN2 ---
Progress Note - Dictate Date Seen: Dec 14, 2024 Has the PT tested + for MRSA If YES, has PT been informed?: No Medical Necessity Reason Pt with a Central, PICC or Fol: No vital signs Vital Sign Date Time Temp Pulse Resp B/P (MAP) Pulse Ox O2 Delivery O2 Flow Rate FiO2 12/14/24 12:00 97.9 110 28 133/75 (94) 94 97.9 12/14/24 12:00 Nasal Cannula* 5 40 Total Intake and Output 12/13/24 12/13/24 12/14/24 14:59 22:59 06:59 Intake Total 300 ml 650 ml 750 ml Output Total 2200 ml 1900 ml Balance 300 ml -1550 ml -1150 ml medications Current Medications Medications Dose Ordered Sig/Brice Route Start Time Stop Time Status Last Admin Dose Admin Acetaminophen/ Hydrocodone Bitart 1 tab Q4HP PRN PO 12/07/24 10:45 12/14/24 06:56 1 TAB Ondansetron HCl 4 mg Q4HP PRN IV 12/07/24 10:45 12/07/24 16:07 4 MG Enoxaparin Sodium 40 mg DAILY SC 12/07/24 10:52 12/14/24 09:21 40 MG Acetaminophen 650 mg Q6HP PRN PO 12/07/24 10:45 Ceftriaxone Sodium 50 ml @ 100 mls/hr DAILY@09 IV 12/08/24 09:00 12/14/24 09:22 100 MLS/HR Hydralazine HCl 10 mg Q6HP PRN IV 12/07/24 11:15 12/13/24 23:09 10 MG Amlodipine Besylate 10 mg DAILY PO 12/08/24 10:00 12/14/24 09:22 10 MG Folic Acid 1 mg DAILY PO 12/09/24 10:00 12/14/24 09:21 1 MG Multivitamins 1 tab DAILY PO 12/09/24 10:00 12/14/24 09:21 1 TAB Magnesium Oxide 400 mg DAILY PO 12/09/24 10:00 12/14/24 09:22 400 MG Thiamine HCl 100 mg DAILY PO 12/09/24 10:00 12/14/24 09:21 100 MG Lorazepam 1 mg Q6HP PRN IV 12/10/24 10:00 12/14/24 02:36 1 MG Losartan Potassium 25 mg DAILY PO 12/11/24 10:30 12/14/24 09:23 25 MG Albuterol 2.5 mg Q6HWA NEB 12/11/24 12:00 12/14/24 11:31 2.5 MG Ipratropium [place] 0.5 mg Q6HWA NEB 12/11/24 12:00 12/14/24 11:31 0.5 MG Morphine Sulfate 2 mg Q4HPRN PRN IV 12/11/24 13:30 12/13/24 05:08 2 MG Quetiapine Fumarate 100 mg HS PO 12/14/24 22:00 UNV Polyethylene Glycol 17 gm DAILY PO 12/14/24 13:30 UNV Benztropine Mesylate 1 mg DAILY PO 12/15/24 10:00 UNV laboratory and microbiology Laboratory Tests 12/14/24 05:04 Test 12/14/24 05:04 Range/Units Serum Glucose 100 74-106 mg/dL Assessment/Plan Altered mental status Acute hypoxemic respiratory failure Substance abuse Left-sided pneumothorax Patient is seen and examined ICU events min 02 3lpm mentation improving chest tube removed Labs reviewed Imaging studies reviewed A chest x-ray shows bilateral infiltrates at the bases/small to moderate right pleural effusion Management plan 02 as needed incent sp bronchodilators Continue Lasix Monitor renal function replace electrolytes Empiric antibiotic Deescalate based on cultures Monitor renal function Pain control GI and DVT prophylaxis ok to d/grade Critical care time 35 minutes Dietary Evaluation Review Comments: Continue current POC Expected Outcomes/Goals: To meet >75% estimated needs Fu 5-7 days Protein Calorie Malnutrition: Severe Plan discussed with: Other (rn) SHANNEN SANCHEZ MD Dec 14, 2024 14:10
[2024-12-14] MEDS: POLYETHYLENE GLYCOL 17 GM PWDR PO SCH (14:46)
[2024-12-14] MEDS: QUEtiapine FUMARATE 100 MG TAB PO SCH (23:18)
[2024-12-15] VITALS (11 sets, daily range): BP systolic 103–136; BP diastolic 51–80; PULSE 70–121; RESP 16–20; TEMP 36.8; O2SAT 92–100
[2024-12-15 07:58] LABS: Basophils # (auto) 0 10 ^3/uL (0-0.2); Basophils % (auto) 0.6 % (0.0-2.0); Eosinophils # (auto) 0.4 10 ^3/uL (0-0.8); Eosinophils % (auto) 5.2 % (0.0-7.0); Hematocrit 39.4 % (41.0-53.0); Hemoglobin 13.2 g/dL (13.5-17.5); Lymphocytes # (auto) 1.7 10 ^3/uL (0.4-5.4); Lymphocytes % (auto) 23.7 % (10.0-50.0); Mean Corpuscular Hemoglobin 30.3 pg (28.0-32.0); Mean Corpuscular Hgb Conc. 33.5 g/dL (32.0-36.0); Mean Corpuscular Volume 90.4 fL (80.0-100.0); Monocytes # (auto) 1.1 10 ^3/uL (0-1.3); Monocytes % (auto) 15.1 % (0.0-12.0); Neutrophils % (auto) 55.4 % (37.0-80.0); Nucleated Red Blood Cells % 0.2 %; Platelet Count (auto) 376 10^3/uL (140-450); Red Blood Cells 4.36 10^6/uL (4.5-5.90); Red Cell Distribution Width 13.6 % (11.8-14.3); White Blood Cell 7.1 10^3/uL (4.4-10.8)
[2024-12-15 08:09] LABS: Anion Gap 5 (5-15); Calcium 9.9 mg/dL (8.7-10.4); Carbon Dioxide 28 mmol/L (20-31); Potassium 3.9 mmol/L (3.5-5.1); Sodium 141 mmol/L (136-145)
[2024-12-15 08:12] LABS: Chloride 108 mmol/L (98-107)
[2024-12-15 08:15] LABS: BUN/Creatinine Ratio 13.1 (10.0-20.0); Blood Urea Nitrogen 11 mg/dL (9-23); Glucose 93 mg/dL (74-106)
[2024-12-15] MEDS: BENZTROPINE MESY 0.5 MG TAB PO SCH (10:30)
[2024-12-15] MEDS ORDERED: HYDR-4902 PO (13:29)
--- NOTE | 2024-12-15 13:35 | DVHDS2 ---
Discharge Summary Date of Admission December 07, 2024 at 10:41 Date of Discharge: Dec 15, 2024 Admitting Diagnosis Left pneumothorax secondary to rib fracture Labs/Diagnostic Data: Laboratory Results Test 12/15/24 07:38 12/10/24 13:18 12/10/24 11:25 12/10/24 06:12 White Blood Count 7.1 10^3/uL (4.4-10.8) Red Blood Count 4.36 10^6/uL (4.5-5.90) Hemoglobin 13.2 g/dL (13.5-17.5) Hematocrit 39.4 % (41.0-53.0) Mean Corpuscular Volume 90.4 fL (80.0-100.0) Mean Corpuscular Hemoglobin 30.3 pg (28.0-32.0) Mean Corpuscular Hemoglobin Concent 33.5 g/dL (32.0-36.0) Red Cell Distribution Width 13.6 % (11.8-14.3) Platelet Count 376 10^3/uL (140-450) Mean Platelet Volume 6.8 fL (6.9-10.8) Neutrophils (%) (Auto) 55.4 % (37.0-80.0) Lymphocytes (%) (Auto) 23.7 % (10.0-50.0) Monocytes (%) (Auto) 15.1 % (0.0-12.0) Eosinophils (%) (Auto) 5.2 % (0.0-7.0) Basophils (%) (Auto) 0.6 % (0.0-2.0) Neutrophils # (Auto) 4.0 10 ^3/uL (1.6-8.6) Lymphocytes # (Auto) 1.7 10 ^3/uL (0.4-5.4) Monocytes # (Auto) 1.1 10 ^3/uL (0-1.3) Eosinophils # (Auto) 0.4 10 ^3/uL (0-0.8) Basophils # (Auto) 0 10 ^3/uL (0-0.2) Nucleated Red Blood Cells 0.2 % Sodium Level 141 mmol/L (136-145) Potassium Level 3.9 mmol/L (3.5-5.1) Chloride Level 108 mmol/L (98-107) Carbon Dioxide Level 28 mmol/L (20-31) Anion Gap 5 (5-15) Blood Urea Nitrogen 11 mg/dL (9-23) Creatinine 0.84 mg/dL (0.700-1.30) Glomerular Filtration Rate Calc 96 mL/min (>90) BUN/Creatinine Ratio 13.1 (10.0-20.0) Serum Glucose 93 mg/dL (74-106) Calcium Level 9.9 mg/dL (8.7-10.4) Blood Gas Specimen Type Arterial Blood Gas Sample Site Left radial Blood Gas Patient Temperature 37.0 Arterial Blood Date Drawn [id number] Arterial Blood pH 7.463 (7.350-7.450) Arterial Blood Partial Pressure CO2 39.1 mmHg (35.0-48.0) Arterial Blood Partial Pressure O2 87.3 mmHg (83.0-108.0) Arterial Blood HCO3 27.4 mmol/L (21.0-28.0) Arterial Blood Oxygen Saturation 96.4 % (94.0-98.0) Arterial Blood Base Excess 3.5 mmol/L (-2.0-3.0) Arterial Blood Oxyhemoglobin 95.8 % (94.0-98.0) Arterial Blood Carboxyhemoglobin 0.4 % (0.5-1.5) Arterial Blood Methemoglobin 0.2 % (0.0-1.5) Benjamin Test Yes Blood Gas Total Hemoglobin 14.60 g/dL (13.5-17.5) Blood Gas Liter Flow 30.00 Blood Gas Modality High flow FiO2 % 80.0 Blood Gas Spontaneous Rate 28 Blood Gas Set Respiration Rate 20.0 Blood Gas Tidal Volume 500.0 Blood Gas PEEP or CPAP 5.0 Test 12/08/24 09:58 12/08/24 04:50 12/07/24 12:13 12/07/24 03:30 Blood Gas Critical Value Read Back yes Blood Gas Notified Whom Blood Gas Notified Time [id number] Blood Gas Notified By steel fabricator lucien Total Bilirubin 0.8 mg/dL (0.2-1.0) Aspartate Amino Transferase (AST) 37 U/L (13-40) Alanine Aminotransferase (ALT) 25 U/L (7-40) Alkaline Phosphatase 62 U/L (46-116) Total Protein 7.4 g/dL (5.7-8.2) Albumin 4.6 g/dL (3.2-4.8) Urine Color Light-yellow (Yellow) Urine Clarity Clear (Clear) Urine pH 5.0 (5.0-9.0) Urine Specific [place] 1.024 (1.001-1.035) Urine Protein Trace (Negative) Urine Ketones 2+ (Negative) Urine Blood Negative /uL (Negative) Urine Nitrite Negative (Negative) Urine Bilirubin Negative (Negative) Urine Urobilinogen Normal mg/dL (Negative) Urine Leukocyte Esterase Negative /uL (Negative) Urine RBC 1 /hpf (0 - 3) Urine Microscopic WBC < 1 /HPF (0-3) Urine Squamous Epithelial Cells None seen /hpf (<5) Urine Bacteria None seen /hpf (None Seen) Urine Glucose 2+ mg/dL (Normal) Urine Opiates Screen Pos (NEGATIVE) Urine Fentanyl Screen Neg (NEGATIVE) Urine Barbiturates Screen Neg (NEGATIVE) Urine Phencyclidine Screen Neg (NEGATIVE) Urine Amphetamines Screen Neg (NEGATIVE) Urine Benzodiazepines Screen Neg (NEGATIVE) Urine Cocaine Screen Neg (NEGATIVE) Urine Cannabinoids Screen Neg (NEGATIVE) Troponin I High Sensitivity < 3 ng/L (</=54) Test 12/07/24 00:38 Hemoglobin A1c 5.6 % A1C (<5.7) B-Type Natriuretic Peptide 5.88 pg/mL (0-100) Plasma/Serum Blood Alcohol 140.1 mg/dL (<10) Other Laboratory Tests 12/15/24 07:38 Brief Hx & Hospital Course: History of Present Illness A 64-year-old male presents to the ED via EMS with left-sided chest pain and sob after a mechanical fall. The patient reports that while kicking a soccer ball with his knees, he accidentally fell and landed on left side, resulting in the onset of shortness of breath and chest pain. In the emergency department, a CT scan of chest revealed moderate left-sided pneumothorax, multiple left-sided rib fracture, atelectasis/consolidation/contusion in the bilateral lower lobes. Blood work reveals alcohol intoxication, acute kidney injury, hypertension,and leukocytosis. Upon assessment, the patient is currently on 15 L non-rebreather mask and desaturates immediately upon removal of the mask. Past medical history of hypertension and hypothyroidism patient is unable to recall medication names or dosages. Course of hospitalization: Patient had declining clinical status requiring mechanical ventilation. Patient was treated for pneumonia, bronchodilators,, subsequently weaned off of mechanical ventilation. Patient was noted to have atelectasis on repeat chest x-ray in addition to resolution of pneumothorax. Patient was started on EzPAP, incentive spirometer with increasing ambulation and continuation of bronchodilators. Patient was weaned off of oxygen. Chest tube has been removed. Today, the patient's pain has been controlled. He has been ambulating greater than 300 ft. On room air saturation was 95%. Patient will be discharged home as instructed to follow up with his PCP in 1-2 weeks. Physical examination General: Alert and Oriented x3. No acute distress. Well-nourished. Eyes: EOMI. Anicteric. HENT: Moist mucous membranes. Lungs: Clear to auscultation bilaterally. No accessory muscle use. Cardiovascular: Regular rate and rhythm. No murmur. No JVD. Abdomen: Soft, non-tender and non-distended. No palpable masses. Extremities: No edema. Non-tender. Skin: No rashes or lesions. Warm. Neurologic: No focal neurological deficits. CN II-XII grossly intact, but not individually tested. Psychiatric: Cooperative. Appropriate mood and affect. Total time spent with patient discussing and formulating plan of care: 35 minutes. This medical document was created using an electronic medical record system with [employer] dictation system. Although this document has been carefully reviewed, there may still be some phonetic and typographical errors. These areas are purely typographical due to imperfections of the software programs, and do not reflect any compromise in the patient's medical care. Consults/Reason for consult Pulmonology: Acute respiratory failure Condition at Discharge: Fair Final Diagnosis/Problems List Acute hypoxic respiratory failure Secondary diagnosis: -acute hypoxic respiratory failure secondary to pneumothorax -multiple rib fractures with left pneumothorax -alcoholism -hypotension, secondary to sedation -sirs -acute alcohol withdrawal -community-acquired pneumonia, Gram-positive/Gram-negative etiology Discharge Disposition: Home Discharge Instruct/Medications Diet: Regular Activity: No Restrictions, As Tolerated Follow Up/Referral: PCP in 1-2 weeks Medications: [place] 5/325 q8hrs prn pain 36 Discharge Statement: "Patient was advised to return to the ER or call 911 if any headaches, dizziness, shortness of breath, chest pain, abdominal pain, bleeding, fevers, or worsening of medical condition. Patient was counseled about treatment plan, medications, possible side effects, patientverbalized understanding. All questions were answered to the best of my ability. This discharge took greater then 30 minutes in planning, reviewing documentation, counseling the patient, and discussing with other team members." ASSESSMENT ASSESSMENT Assessment Acute hypoxic respiratory failure Date of Service: Dec 15, 2024 Billing Provider: GEORGE COULTER NP Common Visit Codes: [id number] DISCH DAY >30min GEORGE COULTER NP Dec 15, 2024 13:35
--- NOTE | 2024-12-16 08:03 | ECG ---
[facility] Test Date: 2024-12-12 Test Time: 23:48:30 Pat Name: MILENA JIMENES Department: Room: 0297T A Gender: M Urban Anthropologist: JANETT : 1960 Requested By: MADI MOON Order Number: [id number] Reading MD: Carlo Castro Measurements Intervals [place] Rate: 93 P: 63 [place]: 170 QRS: -27 QRSD: 102 T: 31 QT: 348 QTc: 433 Interpretive Statements Sinus rhythm Abnormal R-wave progression, early transition Inferior infarct, old Baseline wander in lead(s) III Electronically Signed On 12-17-2024 14:39:46 PDT by Carlo Castro Please click the below link to view image of tracing.
== END 2024-12-15 15:50 | disposition home or self-care (01) | DRG 208 ==
LOC: ER 00:19 → EDBD 00:19 → OVERFLOW 10:41 → CATH ICU 12-09 05:09 → DOU IN ICU 12-11 21:54 → TELE-WESTW 12-14 21:48
PROVIDERS: ADMIT Nurse Practitioner Acute Care; ATTEND Nurse Practitioner Acute Care
PROC: 06HY33Z Insertion of Infusion Device into Lower Vein, Percutaneous Approach (ICD-10-PCS; principal; 2024-12-07)
PROC: 0W9B30Z Drainage of Left Pleural Cavity with Drainage Device, Percutaneous Approach (ICD-10-PCS; 2024-12-08)
PROC: 5A0935A Assistance with Respiratory Ventilation, Less than 24 Consecutive Hours, High Flow/Velocity Cannula (ICD-10-PCS; 2024-12-08)
PROC: 5A1945Z Respiratory Ventilation, 24-96 Consecutive Hours (ICD-10-PCS; 2024-12-09)
PROC: 0BH17EZ Insertion of Endotracheal Airway into Trachea, Via Natural or Artificial Opening (ICD-10-PCS; 2024-12-09)
PROC: 5A0945A Assistance with Respiratory Ventilation, 24-96 Consecutive Hours, High Flow/Velocity Cannula (ICD-10-PCS; 2024-12-10)
DX: S27.2XXA Traumatic hemopneumothorax, initial encounter (principal); J69.0 Pneumonitis due to inhalation of food and vomit; J15.69 Pneumonia due to other Gram-negative bacteria; J96.01 Acute respiratory failure with hypoxia; J15.9 Unspecified bacterial pneumonia; S22.42XA Multiple fractures of ribs, left side, initial encounter for closed fracture; N17.9 Acute kidney failure, unspecified; R65.10 Systemic inflammatory response syndrome (SIRS) of non-infectious origin without acute organ dysfunction; F10.239 Alcohol dependence with withdrawal, unspecified; N18.31 Chronic kidney disease, stage 3a; F10.229 Alcohol dependence with intoxication, unspecified; E03.9 Hypothyroidism, unspecified; F19.10 Other psychoactive substance abuse, uncomplicated; I12.9 Hypertensive chronic kidney disease with stage 1 through stage 4 chronic kidney disease, or unspecified chronic kidney disease; I95.2 Hypotension due to drugs; T42.6X5A Adverse effect of other antiepileptic and sedative-hypnotic drugs, initial encounter; Z87.891 Personal history of nicotine dependence; W18.39XA Other fall on same level, initial encounter; Y93.89 Activity, other specified; Y92.89 Other specified places as the place of occurrence of the external cause; Y99.8 Other external cause status
CPT/HCPCS: 32555; 36415; 36600; 71045; 71250; 80048; 80053; 80307; 80320; 81001; 82805; 83036; 83880; 84484; 85025; 87040; 87070; 87081; 87205; 93005; 94002; 94003; 94640; 96361; 96374; 97110; 97116; 97163; 97530; A4565; G0378; J2405; J2704